=== PATIENT | female | born 1935 | race Caucasian/White ===

== ENCOUNTER 2017-12-29 20:03 | Emergency (ER) | payer MEDICARE ==
[2017-12-29 23:47] LABS: BASO # 0.1 K/uL (0.0-0.2); BASO % 0.7 % (0.0-2.0); EOS % 0.4 % (0.0-4.0); HEMOGLOBIN 11.9 g/dL (11.0-16.0); LYMPH # 1.4 K/uL (1.0-4.3); LYMPH % 16.8 % (20.0-40.0); MEAN CELL VOLUME 95.7 fL (81.0-99.0); MEAN CORPUSCULAR HEMOGLOBIN 32.7 pg (27.0-31.0); MEAN CORPUSCULAR HGB CONC 34.2 g/dL (33.0-37.0); MEAN PLATELET VOLUME 9.8 fL (7.2-11.7); MONO # 0.6 K/uL (0.0-0.8); MONO % 7.7 % (0.0-10.0); NEUT # 6.2 K/uL (1.8-7.0); NEUT % 74.4 % (50.0-75.0); NRBC % 0.1 % (0.0-2.0); RBC 3.64 Mil/uL (3.80-5.20); RED CELL DISTRIBUTION WIDTH 15.2 % (11.5-14.5); WHITE BLOOD COUNT 8.3 K/uL (4.8-10.8)
[2017-12-30 00:02] LABS: ALB/GLOB RATIO 1.2 (1.0-2.1); ALBUMIN 3.9 g/dL (3.5-5.0); ALT/SGPT 50 U/L (9-52); AST/SGOT 46 U/L (14-36); BLOOD UREA NITROGEN 20 mg/dL (7-17); CALCIUM 9.8 mg/dl (8.6-10.4); GFR AFRICAN-AMERICAN > 60; GFR NON-AFRICAN AMERICAN 53; LIPASE 184 U/L (23-300)
[2017-12-30] MEDS ORDERED: Sodium Chloride 0.9% 500 ML IV ONE (00:16)
[2017-12-30] MEDS ORDERED: Iohexol 240 (50 ml) PO STA (00:17)
[2017-12-30] MEDS ORDERED: Iohexol 240 (50 ml) ONE (00:25)
[2017-12-30] MEDS ORDERED: Sodium Chloride 0.9% 1,000 ML ONE (00:29)
--- NOTE | 2017-12-30 00:36 | C.PDOC ---
Time Seen by Provider: 12/29/17 22:30 Chief Complaint (Nursing): Abdominal Pain History Per: Patient, Family Onset/Duration Of Symptoms: Days, Intermittent Episodes Current Symptoms Are (Timing): Still Present Severity: Moderate Location Of Pain/Discomfort: Diffuse Quality Of Discomfort: Unable To Describe, "Pain" Exacerbating Factors: Food Additional History Per: Prior Records Past Medical History Reviewed: Historical Data, Nursing Documentation, Vital Signs Vital Signs: Last Vital Signs Temp 98 F 12/30/17 00:50 Pulse 98 H 12/30/17 00:50 Resp 20 12/30/17 00:50 BP 127/83 12/30/17 00:50 Pulse Ox 100 12/30/17 00:50 - Medical History PMH: Diabetes, HTN Surgical History: CABG Family History: States: Unknown Family Hx - Social History Hx Alcohol Use: No Hx Substance Use: No - Immunization History Hx Tetanus Toxoid Vaccination: No Hx Influenza Vaccination: Yes Hx Pneumococcal Vaccination: No Review Of Systems Except As Marked, All Systems Reviewed And Found Negative. Constitutional: Negative for: Fever Cardiovascular: Negative for: Chest Pain Respiratory: Negative for: Shortness of Breath Gastrointestinal: Positive for: Abdominal Pain Musculoskeletal: Negative for: Neck Pain Skin: Negative for: Rash Neurological: Negative for: Weakness, Numbness Physical Exam - Physical Exam Appears: Non-toxic, No Acute Distress Skin: Normal Color, Warm, Dry, No Rash Head: Atraumatic, Normacephalic Eye(s): bilateral: PERRL, EOMI Neck: Normal ROM, Supple Cardiovascular: Rhythm Regular Respiratory: Normal Breath Sounds, No Accessory Muscle Use Gastrointestinal/Abdominal: Soft, Tenderness (nonspecific), No Guarding, No Rebound Extremity: Normal ROM Neurological/Psych: Normal Motor, Normal Sensation ED Course And Treatment - Laboratory Results Result Diagrams: 12/29/17 23:42 12/29/17 23:42 ECG: Interpreted By Me, Viewed By Me ECG Rhythm: Sinus Rhythm, Nonspecific Changes ECG Interpretation: No Acute Changes Rate From EC O2 Sat by Pulse Oximetry: 95 Pulse Ox Interpretation: Normal Disposition - Disposition Disposition Time: 01:00 Condition: STABLE - Clinical Impression Clinical Impression: Abdominal pain Physician Patient Turnover Patient Signed Over To: Jesús Miller Handoff Comments: to f/up CT scan of abd/pelv.
[2017-12-30] MEDS ORDERED: Iohexol 350mg/ml 100 ML ONE (01:02)
--- NOTE | 2017-12-30 02:14 | CT ---
EXAM: CT Abdomen and Pelvis With Intravenous Contrast CLINICAL HISTORY: 82 years old, female; Pain; Abdominal pain; Prior surgery; Surgery type: Cabg, ; Additional info: Abd pain TECHNIQUE: Axial computed tomography images of the abdomen and pelvis with intravenous contrast. All CT scans at this facility use one or more dose reduction techniques, viz.: automated exposure control; ma/kV adjustment per patient size (including targeted exams where dose is matched to indication; i.e. head); or iterative reconstruction technique. Coronal and sagittal reformatted images were created and reviewed. CONTRAST: 100 mL of [id number] administered intravenously. COMPARISON: No relevant prior studies available. FINDINGS: Limitations: Motion artifact - mild to moderate. Lower thorax: Mild cardiomegaly. Coronary artery calcifications. Mild atelectasis/scarring. Mild interlobular septal thickening. Small bilateral pleural effusions. ABDOMEN: Liver: Unremarkable. No mass. Gallbladder and bile ducts: Gallbladder wall thickening and/or fluid. No calcified gallstones. No definite extrahepatic ductal dilation. Pancreas: No ductal dilation. No mass. Spleen: No splenomegaly. Adrenals: No mass. Kidneys and ureters: No mass. No hydronephrosis. Stomach and bowel: Few scattered diverticula within colon. No associated inflammatory stranding. Segmental areas of mild mural thickening vs underdistention of large bowel. No associated inflammatory stranding. No obstruction. Appendix: Normal caliber. No inflammation. PELVIS: Bladder: Unremarkable. Reproductive: Hysterectomy. ABDOMEN and PELVIS: Intraperitoneal space: Trace free fluid within abdomen. No free air. Bones/joints: Median sternotomy. Degenerative changes and scoliosis of spine. No acute fracture. Soft tissues: Minimal diffuse stranding within subcutaneous tissues. Vasculature: No aneurysm. Moderate atherosclerotic disease. Lymph nodes: No pathologically enlarged lymph nodes. IMPRESSION: 1. Gallbladder wall thickening and/or fluid. Clinical correlation is needed. 2. Mild colitis vs underdistention. Favor underdistention. Clinical correlation is needed. 3. Probable mild interstitial edema. Clinical correlation is needed. 4. Small pleural effusions. 5. Trace ascites. 6. Incidental/non-acute findings are described above.
[2017-12-30 03:07] LABS: SQUAMOUS EPITHIAL < 1 /hpf (0-5); URINE BACTERIA RARE (<OCC); URINE BILIRUBIN NEGATIVE (NEGATIVE); URINE CLARITY Hazy (Clear); URINE COLOR Yellow (YELLOW); URINE GLUCOSE (UA) NORMAL (Normal); URINE LEUKOCYTE ESTERASE 3+ Leu/uL (Negative); URINE NITRATE NEGATIVE (NEGATIVE); URINE PROTEIN NEGATIVE (NEGATIVE); URINE UROBILINOGEN NORMAL mg/dL (0.2-1.0)
[2017-12-30 03:10] LABS: URINE BLOOD 1+ (NEGATIVE)
[2017-12-30 03:26] VITALS: BP 120/79; PULSE 88; RESP 18; TEMP 97.4; O2SAT 100
--- NOTE | 2018-01-02 23:25 | CARD ---
APPROVED REPORT EKG Measurement Heart [id number] <Conclusion> Normal sinus rhythm Possible Left atrial enlargement Nonspecific T wave abnormality Abnormal ECG
== END 2017-12-30 03:40 | disposition home or self-care (01) ==
LOC: EDBD 20:03 → C.ER 20:03
DX: N39.0 Urinary tract infection, site not specified (principal); R10.9 Unspecified abdominal pain
CPT/HCPCS: 74177; 80053; 81001; 83690; 85025; 93005; 96361; 96374; 96375; 99285; J2405; J7040; Q9966; Q9967

== ENCOUNTER 2018-01-28 14:22 | Emergency (ER) | payer MEDICARE ==
[2018-01-28 14:38] VITALS: BMI 19.7
[2018-01-28 14:42] VITALS: TEMP 97.2; O2SAT 100
[2018-01-28 15:38] LABS: BASO # 0.1 K/uL (0.0-0.2); BASO % 0.9 % (0.0-2.0); EOS # 0.2 K/uL (0.0-0.7); EOS % 2.7 % (0.0-4.0); HEMOGLOBIN 11.3 g/dL (11.0-16.0); LYMPH # 1.3 K/uL (1.0-4.3); LYMPH % 24.1 % (20.0-40.0); MEAN CORPUSCULAR HEMOGLOBIN 32.1 pg (27.0-31.0); MEAN CORPUSCULAR HGB CONC 32.8 g/dL (33.0-37.0); MEAN PLATELET VOLUME 10.4 fL (7.2-11.7); MONO # 0.5 K/uL (0.0-0.8); MONO % 9.5 % (0.0-10.0); NEUT # 3.5 K/uL (1.8-7.0); NEUT % 62.8 % (50.0-75.0); NRBC % 0.1 % (0.0-2.0); RBC 3.53 Mil/uL (3.80-5.20); RED CELL DISTRIBUTION WIDTH 16.7 % (11.5-14.5); WHITE BLOOD COUNT 5.5 K/uL (4.8-10.8)
[2018-01-28 15:56] LABS: ALB/GLOB RATIO 1.2 (1.0-2.1); ALBUMIN 3.6 g/dL (3.5-5.0); ALT/SGPT 44 U/L (9-52); AST/SGOT 51 U/L (14-36); BLOOD UREA NITROGEN 17 mg/dL (7-17); CALCIUM 8.7 mg/dl (8.6-10.4); GFR AFRICAN-AMERICAN > 60; GFR NON-AFRICAN AMERICAN 60; LIPASE 184 U/L (23-300)
[2018-01-28 15:59] LABS: VENOUS BLOOD GAS PCO2 37 mmHg (40-60); VENOUS BLOOD GAS PO2 21 mm/Hg (30-55); VENOUS BLOOD PH 7.36 (7.32-7.43)
[2018-01-28 16:23] LABS: SQUAMOUS EPITHIAL 1 /hpf (0-5); URINE BACTERIA FEW (<OCC); URINE BILIRUBIN NEGATIVE (NEGATIVE); URINE BLOOD NEGATIVE (NEGATIVE); URINE CLARITY Hazy (Clear); URINE COLOR Yellow (YELLOW); URINE GLUCOSE (UA) NORMAL (Normal); URINE LEUKOCYTE ESTERASE 2+ Leu/uL (Negative); URINE PROTEIN 2+ mg/dL (NEGATIVE); URINE UROBILINOGEN NORMAL mg/dL (0.2-1.0)
--- NOTE | 2018-01-28 16:23 | C.PDOC ---
History Of Present Illness 82 y/o female presents to ED with complaints of colic left lower quadrant abdominal pain for 2 weeks. Patient reports pain is improved when she eats less and states she had similar episodes in 12/2017 where she had normal CT scan abdomen pelvis. Patient admits to constipation and denies nausea, vomiting, diarrhea, bowel incontinence, fever, chills or any other complaints at this time. Time Seen by Provider: 01/28/18 14:46 Chief Complaint (Nursing): Abdominal Pain History Per: Patient History/Exam Limitations: no limitations Onset/Duration Of Symptoms: Days Current Symptoms Are (Timing): Still Present Location Of Pain/Discomfort: LLQ Past Medical History Reviewed: Historical Data, Nursing Documentation, Vital Signs Vital Signs: Last Vital Signs Temp 97.2 F L 01/28/18 14:39 Pulse 74 01/28/18 17:02 Resp 20 01/28/18 17:02 BP 130/72 01/28/18 17:02 Pulse Ox 100 01/28/18 16:28 - Medical History PMH: Diabetes, HTN Surgical History: CABG Family History: States: No Known Family Hx - Social History Hx Alcohol Use: No Hx Substance Use: No - Immunization History Hx Tetanus Toxoid Vaccination: No Hx Influenza Vaccination: Yes Hx Pneumococcal Vaccination: No Review Of Systems Constitutional: Negative for: Fever, Chills Gastrointestinal: Positive for: Abdominal Pain, Constipation. Negative for: Nausea, Vomiting, Diarrhea Skin: Negative for: Rash Physical Exam - Physical Exam Appears: Non-toxic, No Acute Distress, Other (Elderly) Skin: Warm, Dry, No Rash Head: Atraumatic, Normacephalic Oral Mucosa: Moist Neck: Normal ROM, Supple Cardiovascular: Rhythm Regular Respiratory: Normal Breath Sounds, No Rales, No Rhonchi, No Wheezing Gastrointestinal/Abdominal: Soft, No Tenderness, No Guarding, No Rebound, Other (Dull to percussion) Back: No CVA Tenderness Extremity: Normal ROM, Capillary Refill (<2 seconds) Neurological/Psych: Oriented x3 ED Course And Treatment - Laboratory Results Result Diagrams: 01/28/18 15:29 01/28/18 15:29 O2 Sat by Pulse Oximetry: 100 (RA) Pulse Ox Interpretation: Normal Medical Decision Making Medical Decision Makin12/2017 CT scan reviewed: Small pleural effusion, Questionable mild gallbladder thickening Disposition Doctor Will See Patient In The: Office Counseled Patient/Family Regarding: Studies Performed, Diagnosis - Disposition Referrals: [facility] [Outside] Disposition: HOME/ ROUTINE Disposition Time: 16:30 Condition: GOOD Additional Instructions: trial a laxative now- drink a bottle of Mag Citrate- and re-evaluate your abdominal discomfort after using the bathroom 2-3 times daily stool softners as needed eat plenty of fruits and vegetables LESS rice, bread. Occasional laxatives as needed for colicky belly discomfort Follow-up in our outpatient [facility] (free) as needed. Instructions: Constipation, Adult (DC) Forms: [employer] (Togolese) - Clinical Impression Clinical Impression: Hx of abdominal colic - Scribe Statement The provider has reviewed the documentation as recorded by the Nancyibeduin Mueller All medical record entries made by the Nancyibeduin were at my direction and personally dictated by me. I have reviewed the chart and agree that the record accurately reflects my personal performance of the history, physical exam, medical decision making, and the department course for this patient. I have also personally directed, reviewed, and agree with the discharge instructions and disposition.
--- NOTE | 2018-01-28 16:26 | C.PDOC ---
Time Seen by Provider: 01/28/18 14:46 Chief Complaint (Nursing): Abdominal Pain Past Medical History Vital Signs: Last Vital Signs Temp 97.2 F L 01/28/18 14:39 Pulse 71 01/28/18 14:39 Resp 18 01/28/18 14:39 BP 126/78 01/28/18 14:39 Pulse Ox 100 01/28/18 14:39 - Medical History PMH: Diabetes, HTN Surgical History: CABG Family History: States: Unknown Family Hx - Social History Hx Alcohol Use: No Hx Substance Use: No - Immunization History Hx Tetanus Toxoid Vaccination: No Hx Influenza Vaccination: Yes Hx Pneumococcal Vaccination: No ED Course And Treatment - Laboratory Results Lab Interpretation: Normal ECG: Interpreted By Me ECG Rhythm: Sinus Rhythm ECG Interpretation: Normal Rate From EC O2 Sat by Pulse Oximetry: 100 Pulse Ox Interpretation: Normal - Radiology CXR: Interpreted by Me CXR Interpretation: Yes: No Acute Disease - Other Rad abd x 2 X-Ray: Interpreted by Me (+FOS) Reevaluation Time: 16:27 Reassessment Condition: Unchanged Medical Decision Making Medical Decision Making: +FOS, chronic constipation empiric laxative therapy Consider outpatient colonoscopy few WBC's in urine will NOT treat as frequent treatment of mild asymptomatic pyuria has more risk (C-diff) than benefit when asymptomatic. Disposition Doctor Will See Patient In The: Office Counseled Patient/Family Regarding: Studies Performed, Diagnosis - Disposition Disposition: HOME/ ROUTINE Disposition Time: 16:27 Condition: GOOD - Clinical Impression Clinical Impression: Hx of abdominal colic
[2018-01-28 17:03] VITALS: BP 130/72; PULSE 74; RESP 20
--- NOTE | 2018-01-29 08:28 | RAD ---
PROCEDURE: Radiographs of the chest and abdomen (obstructive series) HISTORY: abd pain COMPARISON: No prior. TECHNIQUE: AP radiograph of the chest, with upright and supine radiographs of the abdomen. FINDINGS: CHEST: Lungs: No consolidation Cardiovascular: Cardiomegaly, midline sternotomy. . No significant appearing pulmonary vascular congestion. Pleura: Small bilateral pleural effusions (Noted on prior report of CT 12/30/2017) No pneumothorax. Other findings: None. ABDOMEN AND PELVIS: Bowel: Stool retention.. No evidence of mechanical obstruction. Free air: None. Bones: Scoliosis, diffuse thoraco lumbar spondylosis. Other findings: Atherosclerotic vascular calcifications are present. . IMPRESSION: Similar small bilateral pleural effusions. No pulmonary consolidation. No evidence of mechanical bowel obstruction. Stool retention. Atherosclerotic vascular calcifications present.
--- NOTE | 2018-01-29 16:25 | CARD ---
APPROVED REPORT EKG Measurement Heart [id number] <Conclusion> Normal sinus rhythm Nonspecific T wave abnormality Abnormal ECG
== END 2018-01-28 17:02 | disposition home or self-care (01) ==
LOC: C.ER 14:22
DX: R10.84 Generalized abdominal pain (principal); I10 Essential (primary) hypertension; E11.9 Type 2 diabetes mellitus without complications

== ENCOUNTER 2018-04-11 08:46 | Emergency (ER) | payer MEDICARE ==
[2018-04-11 08:46] VITALS: BMI 19.7
[2018-04-11 09:13] VITALS: RESP 16
[2018-04-11] MEDS ORDERED: Iohexol 240 (50 ml) ONE (09:41)
[2018-04-11] MEDS ORDERED: Iohexol 240 (50 ml) PO ONE (10:01)
[2018-04-11 10:14] LABS: SQUAMOUS EPITHIAL 2 /hpf (0-5); URINE BACTERIA RARE (<OCC); URINE BILIRUBIN NEGATIVE (NEGATIVE); URINE BLOOD NEGATIVE (NEGATIVE); URINE CLARITY Hazy (Clear); URINE COLOR Amber (YELLOW); URINE GLUCOSE (UA) NORMAL (Normal); URINE LEUKOCYTE ESTERASE 3+ Leu/uL (Negative); URINE PROTEIN 1+ mg/dL (NEGATIVE); URINE UROBILINOGEN NORMAL mg/dL (0.2-1.0)
[2018-04-11 10:17] LABS: BASO % 0.8 % (0.0-2.0); EOS # 0.1 K/uL (0.0-0.7); EOS % 1.7 % (0.0-4.0); HEMOGLOBIN 12.7 g/dL (11.0-16.0); LYMPH % 17.5 % (20.0-40.0); MEAN CELL VOLUME 96.5 fL (81.0-99.0); MEAN CORPUSCULAR HEMOGLOBIN 33.1 pg (27.0-31.0); MEAN CORPUSCULAR HGB CONC 34.3 g/dL (33.0-37.0); MONO # 0.6 K/uL (0.0-0.8); NRBC % 0.1 % (0.0-2.0); RBC 3.84 Mil/uL (3.80-5.20); RED CELL DISTRIBUTION WIDTH 14.6 % (11.5-14.5); WHITE BLOOD COUNT 5.8 K/uL (4.8-10.8)
[2018-04-11 10:33] LABS: ALB/GLOB RATIO 1.2 (1.0-2.1); ALBUMIN 3.9 g/dL (3.5-5.0); ALT/SGPT 46 U/L (9-52); AST/SGOT 62 U/L (14-36); BLOOD UREA NITROGEN 29 mg/dL (7-17); CALCIUM 9.6 mg/dl (8.6-10.4); GFR AFRICAN-AMERICAN 47; GFR NON-AFRICAN AMERICAN 39; LIPASE 180 U/L (23-300)
--- NOTE | 2018-04-11 12:22 | RAD ---
PROCEDURE: CHEST RADIOGRAPH, 1 VIEW HISTORY: abd pain COMPARISON: None available. FINDINGS: LUNGS: No definite airspace disease bilaterally. PLEURA: No pneumothorax or pleural fluid seen. CARDIOVASCULAR: Prominent cardiac silhouette is appreciated with some element of magnification and in fact. No definite pulmonary vascular congestion. Right hilar prominence may be a function rotation. Consider follow-up chest CT further characterization as an underlying lesion is difficult to exclude here. OSSEOUS STRUCTURES: Sternotomy wires in position VISUALIZED UPPER ABDOMEN: Surgical clips are noted in the epigastric region medially. OTHER FINDINGS: None. IMPRESSION: Prior right hilar pattern may reflect a function of rotation rather than a mass but chest is advised to exclude the latter finding. No acute infiltrate bilaterally. Cardiomegaly likely.
--- NOTE | 2018-04-11 12:32 | C.PDOC ---
History Of Present Illness 82 y/o female presents to the ER complaining of abdominal pain, nausea, and vomiting which has been present for 1 week. Patient states that the abdominal pain is diffuse. Patient reports that she saw her PMD who referred her to GI. However,she has not followed up with GI as of yet. Denies having diarrhea, CP, SOB, sick contacts, and recent travel. Time Seen by Provider: 04/11/18 08:58 Chief Complaint (Nursing): Abdominal Pain History Per: Patient History/Exam Limitations: no limitations Onset/Duration Of Symptoms: Days Current Symptoms Are (Timing): Still Present Severity: Moderate Past Medical History Reviewed: Historical Data, Nursing Documentation, Vital Signs Vital Signs: Last Vital Signs Temp 98.2 F 04/11/18 14:37 Pulse 80 04/11/18 14:37 Resp 16 04/11/18 14:37 BP 128/79 04/11/18 14:37 Pulse Ox 99 04/11/18 14:37 - Medical History PMH: Diabetes, HTN, Hypercholesterolemia Surgical History: CABG (2011) Family History: States: No Known Family Hx - Social History Hx Alcohol Use: No Hx Substance Use: No - Immunization History Hx Tetanus Toxoid Vaccination: No Hx Influenza Vaccination: Yes Hx Pneumococcal Vaccination: No Review Of Systems Except As Marked, All Systems Reviewed And Found Negative. Constitutional: Negative for: Fever, Chills Cardiovascular: Negative for: Chest Pain Respiratory: Negative for: Shortness of Breath Gastrointestinal: Positive for: Nausea, Vomiting, Abdominal Pain. Negative for : Diarrhea Physical Exam - Physical Exam Appears: Non-toxic, No Acute Distress Skin: Normal Color, Warm, Dry Head: Atraumatic, Normacephalic Eye(s): bilateral: Normal Inspection Nose: Normal Oral Mucosa: Moist Neck: Supple Chest: Symmetrical Cardiovascular: Rhythm Regular Respiratory: Normal Breath Sounds, No Rales, No Rhonchi, No Wheezing Gastrointestinal/Abdominal: Bowel Sounds ((+) bowel sounds), Soft, Tenderness ( periumbilical tenderness), No Guarding, No Rebound Neurological/Psych: Oriented x3, Normal Speech ED Course And Treatment - Laboratory Results Result Diagrams: 04/11/18 09:56 04/11/18 09:56 ECG: Interpreted By Me, Viewed By Me ECG Rhythm: Sinus Rhythm Interpretation Of ECG: NSR with left axis deviation and non-specific ST/ T wave changes Rate From EC O2 Sat by Pulse Oximetry: 100 (RA) Pulse Ox Interpretation: Normal - Other Rad CXR X-Ray: Viewed By Me, Read By Radiologist Interpretation: PROCEDURE: CHEST RADIOGRAPH, 1 VIEW. HISTORY: abd pain. COMPARISON: None available. FINDINGS: LUNGS: No definite airspace disease bilaterally. PLEURA: No pneumothorax or pleural fluid seen. CARDIOVASCULAR: Prominent cardiac silhouette is appreciated with some element of magnification and in fact. No definite pulmonary vascular congestion. Right hilar prominence may be a function rotation. Consider follow-up chest CT further characterization as an underlying lesion is difficult to exclude here. OSSEOUS STRUCTURES: Sternotomy wires in position. VISUALIZED UPPER ABDOMEN: Surgical clips are noted in the epigastric region medially. OTHER FINDINGS: None. IMPRESSION: Prior right hilar pattern may reflect a function of rotation rather than a mass but chest is advised to exclude the latter finding. No acute infiltrate bilaterally. Cardiomegaly likely. - CT Scan/US CT -Abd & Pelv. Other Rad Studies (CT/US): Read By Radiologist, Radiology Report Reviewed CT/US Interpretation: PROCEDURE: CT Abdomen and Pelvis with contrast. HISTORY : abd pain. COMPARISON: Abdomen pelvis CT with contrast 12/30/2017. TECHNIQUE: Chest. Helical CT of the abdomen and pelvis was performed following oral contrast administration. Intravenous contrast was not administered due to renal insufficiency. Contrast dose: None. Radiation dose: Total exam DLP = 228.31 mGy-cm. This CT exam was performed using one or more of the following dose reduction techniques: Automated exposure control, adjustment of the mA and/or kV according to patient size, and/or use of iterative reconstruction technique. FINDINGS: LOWER THORAX: Recurrent versus slightly diminished bilateral pleural effusions remain mild in overall volume. Cardiomegaly reiterated. Linear atelectasis or fibrosis in the bilateral lung bases. LIVER: No gross lesion identified. GALLBLADDER AND BILE DUCTS: Mildly distended. Gallbladder wall not defined. PANCREAS: Unremarkable. No gross lesion or ductal dilatation. SPLEEN: Unremarkable. ADRENALS: Unremarkable. No mass. KIDNEYS AND URETERS: Unremarkable. No hydronephrosis. No solid mass. VASCULATURE: Unremarkable. No aortic aneurysm. BOWEL: Opacified small bowel loops appear unremarkable. Thickening is questioned involving the ascending through transverse large-bowel segments. Left hemicolon is limited evaluation due lack of oral contrast transit. Segmental colitis is therefore in question. Pancolitis is not favored but not completely excluded. APPENDIX: Normal appendix. PERITONEUM: Very mild as ascites appreciated predominately in the upper abdomen tiny liver the spleen and is of uncertain origin. No free intraperitoneal gas identified. LYMPH NODES: Unremarkable. No enlarged lymph nodes. BLADDER: Bladder wall appears thickened though the urinary bladder is not fully distended. Cystitis is not excluded. REPRODUCTIVE : Unremarkable. BONES: No acute fracture. OTHER FINDINGS: An anasarca type pattern of reaction in the intra abdominal as well as extra abdominal pelvic fat is identified. IMPRESSION: 1. Findings suspicious for at least segmental colitis of the colon is not potential pancolitis. Distal small bowel is not well evaluated due lack of oral contrast transit. No bowel obstruction appreciable. 2. Anasarca pattern developing. 3. Potential cystitis. 4. Mild bilateral pleural effusions, persistent or recurrent. Medical Decision Making Medical Decision Making: Assessment: Abdominal Pain Plan: --Labs --UA --CT- Abd & Pelv. --CXR --Omnipaque PO --Protonix IV patient resting comfortably, states improvement, will discharge home to follow up with gi doctor in 2 days. Information provided to patient. Disposition Counseled Patient/Family Regarding: Studies Performed, Diagnosis, Need For Followup, Rx Given - Disposition Referrals: Lee Puentes MD [Staff Provider] - Disposition: HOME/ ROUTINE Disposition Time: 13:48 Condition: STABLE Additional Instructions: follow up with gi doctor in 2 days call to make an appointment take medications as prescribed return to hospital if symptoms worsens or progress Prescriptions: Ciprofloxacin HCl [Cipro] 500 mg PO BID #20 tab Metronidazole [Flagyl] 500 mg PO BID #20 tablet Ondansetron ODT [Zofran ODT] 4 mg PO TID PRN #12 odt PRN Reason: Nausea/Vomiting traMADol [Ultram] 50 mg PO TID PRN #8 tab PRN Reason: Pain, Moderate (4-7) Instructions: Acute Abdomen (Belly Pain), Adult (DC) Forms: [facility] (Tuvaluan), General Discharge Instructions - Clinical Impression Clinical Impression: Colitis - Scribe Statement The provider has reviewed the documentation as recorded by the Kalyan Ball Provider Attestation: All medical record entries made by the Nancyibeduin were at my direction and personally dictated by me. I have reviewed the chart and agree that the record accurately reflects my personal performance of the history, physical exam, medical decision making, and the department course for this patient. I have also personally directed, reviewed, and agree with the discharge instructions and disposition.
--- NOTE | 2018-04-11 13:35 | CT ---
PROCEDURE: CT Abdomen and Pelvis with contrast HISTORY: abd pain COMPARISON: Abdomen pelvis CT with contrast 12/30/2017. TECHNIQUE: Chest Helical CT of the abdomen and pelvis was performed following oral contrast administration. Intravenous contrast was not administered due to renal insufficiency. Contrast dose: None Radiation dose: Total exam DLP = 228.31 mGy-cm. This CT exam was performed using one or more of the following dose reduction techniques: Automated exposure control, adjustment of the mA and/or kV according to patient size, and/or use of iterative reconstruction technique. FINDINGS: LOWER THORAX: Recurrent versus slightly diminished bilateral pleural effusions remain mild in overall volume. Cardiomegaly reiterated. Linear atelectasis or fibrosis in the bilateral lung bases. LIVER: No gross lesion identified. GALLBLADDER AND BILE DUCTS: Mildly distended. Gallbladder wall not defined. PANCREAS: Unremarkable. No gross lesion or ductal dilatation. SPLEEN: Unremarkable. ADRENALS: Unremarkable. No mass. KIDNEYS AND URETERS: Unremarkable. No hydronephrosis. No solid mass. VASCULATURE: Unremarkable. No aortic aneurysm. BOWEL: Opacified small bowel loops appear unremarkable. Thickening is questioned involving the ascending through transverse large-bowel segments. Left hemicolon is limited evaluation due lack of oral contrast transit. Segmental colitis is therefore in question. Pancolitis is not favored but not completely excluded. APPENDIX: Normal appendix. PERITONEUM: Very mild as ascites appreciated predominately in the upper abdomen tiny liver the spleen and is of uncertain origin. No free intraperitoneal gas identified LYMPH NODES: Unremarkable. No enlarged lymph nodes. BLADDER: Bladder wall appears thickened though the urinary bladder is not fully distended. Cystitis is not excluded. REPRODUCTIVE: Unremarkable. BONES: No acute fracture. OTHER FINDINGS: An anasarca type pattern of reaction in the intra abdominal as well as extra abdominal pelvic fat is identified. IMPRESSION: 1. Findings suspicious for at least segmental colitis of the colon is not potential pancolitis. Distal small bowel is not well evaluated due lack of oral contrast transit. No bowel obstruction appreciable. 2. Anasarca pattern developing. 3. Potential cystitis. 4. Mild bilateral pleural effusions, persistent or recurrent.
[2018-04-11 14:38] VITALS: BP 128/79; PULSE 80; TEMP 98.2
[2018-04-11 15:16] VITALS: O2SAT 100
== END 2018-04-11 14:36 | disposition home or self-care (01) ==
LOC: C.ER 08:46
DX: K52.9 Noninfective gastroenteritis and colitis, unspecified (principal); I10 Essential (primary) hypertension; E11.9 Type 2 diabetes mellitus without complications; E78.00 Pure hypercholesterolemia, unspecified
CPT/HCPCS: 71045; 74176; 80053; 81001; 83690; 84484; 85025; 96374; 96375; 99284; C9113; J2405; Q9966

== ENCOUNTER 2018-05-21 19:07 | Inpatient (IN) | payer MEDICARE, OTHER ==
[2018-05-21 19:08] VITALS: BMI 19.7
[2018-05-21] MEDS ORDERED: Sodium Chloride 0.9% 1,000 ML IV ONE (20:01)
--- NOTE | 2018-05-21 20:01 | C.PDOC ---
History Of Present Illness 82 y/o female presents to ED for complaints of abdominal pain associated with few episodes of vomiting and cough that began few hours ago. Patient states pain "comes and goes." Denies any other complaints. Time Seen by Provider: 05/21/18 20:01 Chief Complaint (Nursing): Abdominal Pain History Per: Patient History/Exam Limitations: no limitations Onset/Duration Of Symptoms: Hrs Current Symptoms Are (Timing): Still Present Severity: Moderate Pain Scale Rating Of: 4 Location Of Pain/Discomfort: Diffuse Radiation Of Pain To:: None Associated Symptoms: Vomiting. denies: Fever, Chills, Diarrhea Exacerbating Factors: None Alleviating Factors: None Last Bowel Movement: Today Recent travel outside of the [place]: No Additional History Per: Family Abnormal Vaginal Bleeding: No Past Medical History Reviewed: Historical Data, Nursing Documentation, Vital Signs Vital Signs: Last Vital Signs Temp 97.6 F 05/21/18 19:13 Pulse 77 05/21/18 22:33 Resp 14 05/21/18 22:33 BP 119/77 05/21/18 21:55 Pulse Ox 100 05/21/18 22:33 - Medical History PMH: Diabetes, HTN, Hypercholesterolemia Surgical History: CABG (2011) Family History: States: Unknown Family Hx - Social History Hx Alcohol Use: No Hx Substance Use: No - Immunization History Hx Tetanus Toxoid Vaccination: No Hx Influenza Vaccination: Yes Hx Pneumococcal Vaccination: No Review Of Systems Constitutional: Negative for: Fever, Chills Gastrointestinal: Positive for: Vomiting, Abdominal Pain. Negative for: Diarrhea Skin: Negative for: Rash Neurological: Negative for: Weakness, Numbness Psych: Negative for: Anxiety Physical Exam - Physical Exam Appears: Non-toxic, No Acute Distress Skin: Warm, Dry Head: Normacephalic Eye(s): bilateral: Normal Inspection Oral Mucosa: Moist Neck: Supple Chest: Symmetrical, Other (sternotomy chest scar) Cardiovascular: Rhythm Regular Respiratory: Rales (At bases ), No Rhonchi, No Wheezing Gastrointestinal/Abdominal: Soft, No Tenderness, Distention (Tympanic to percussion), No Guarding, No Rebound Back: Normal Inspection Extremity: Normal ROM, Pedal Edema (Bilateral) Extremity: Bilateral: Normal ROM Pulses: Left Dorsalis Pedis: Normal, Right Dorsalis Pedis: Normal Neurological/Psych: Oriented x3, Normal Speech (Speaking in full sentences ), Other (No focal deficits ) Gait: Steady ED Course And Treatment - Laboratory Results Result Diagrams: 05/21/18 20:10 05/21/18 20:10 ECG: Interpreted By Me, Viewed By Me ECG Rhythm: Sinus Rhythm (70), Nonspecific Changes O2 Sat by Pulse Oximetry: 98 (RA) Pulse Ox Interpretation: Normal - Radiology CXR: Interpreted by Me, Viewed By Me CXR Interpretation: Yes: Cardiomegaly, Other (chf, cabg). No: Infiltrates, Fracture Progress Note: Administered Protonix, Zofran, and IV fluids. Ordered blood work , EKG, and urinalysis. Disposition Discussed With Dr.: Fermín Delgado Comment: accepted the pt on his service and took over the care at 10:36 PM Doctor Will See Patient In The: Hospital Counseled Patient/Family Regarding: Studies Performed, Diagnosis - Disposition Disposition: HOSPITALIZED Disposition Time: 20:01 Condition: FAIR Forms: [facility] (Latvian) - POA Present On Arrival: Poor Glycemic Control - Clinical Impression Clinical Impression: Nausea, Abdominal pain, UTI (urinary tract infection), CHF (congestive heart failure) - Scribe Statement The provider has reviewed the documentation as recorded by the Scribe Sameer Rosenberg All medical record entries made by the Scribe were at my direction and personally dictated by me. I have reviewed the chart and agree that the record accurately reflects my personal performance of the history, physical exam, medical decision making, and the department course for this patient. I have also personally directed, reviewed, and agree with the discharge instructions and disposition. Decision To Admit - Pt Status Changed To: Hospital Disposition Of: Inpatient - Admit Certification Admit to Inpatient:: After my assessment, the patient will require hospitalization for at least two midnights. This is because of the severity of symptoms shown, intensity of services needed, and/or the medical risk in this patient being treated as an outpatient. - InPatient: Physician Admission Certification:: After my assessment, the patient will require hospitalization for at least two midnights. This is because of the severity of symptoms shown, intensity of services needed, and/or the medical risk in this patient being treated as an outpatient. - . Bed Request Type: Telemetry Admitting Physician: Fermín Delgado Patient Diagnosis: Nausea, Abdominal pain, UTI (urinary tract infection), CHF (congestive heart failure)
[2018-05-21 20:15] LABS: BASO % 0.3 % (0.0-2.0); EOS # 0.1 K/uL (0.0-0.7); EOS % 0.5 % (0.0-4.0); HEMOGLOBIN 14.9 g/dL (11.0-16.0); LYMPH # 1.2 K/uL (1.0-4.3); MEAN CELL VOLUME 96.9 fL (81.0-99.0); MEAN CORPUSCULAR HEMOGLOBIN 32.6 pg (27.0-31.0); MEAN CORPUSCULAR HGB CONC 33.7 g/dL (33.0-37.0); MEAN PLATELET VOLUME 10.3 fL (7.2-11.7); MONO # 1.2 K/uL (0.0-0.8); MONO % 11.1 % (0.0-10.0); NEUT # 8.3 K/uL (1.8-7.0); NEUT % 77.1 % (50.0-75.0); NRBC % 0.1 % (0.0-2.0); RBC 4.55 Mil/uL (3.80-5.20); RED CELL DISTRIBUTION WIDTH 16.8 % (11.5-14.5); WHITE BLOOD COUNT 10.8 K/uL (4.8-10.8)
[2018-05-21 20:26] LABS: INR 2.2; PROTHROMBIN TIME 24.2 SECONDS (9.7-12.2)
[2018-05-21 20:32] LABS: ALB/GLOB RATIO 1.3 (1.0-2.1); CALCIUM 9.4 mg/dl (8.6-10.4)
[2018-05-21 20:43] LABS: TROPONIN I 0.015 ng/mL (0.00-0.120)
[2018-05-21 21:52] LABS: SQUAMOUS EPITHIAL 4 /hpf (0-5); URINE BACTERIA RARE (<OCC); URINE BILIRUBIN NEGATIVE (NEGATIVE); URINE BLOOD NEGATIVE (NEGATIVE); URINE CLARITY Hazy (Clear); URINE COLOR Amber (YELLOW); URINE GLUCOSE (UA) NORMAL (Normal); URINE LEUKOCYTE ESTERASE 3+ Leu/uL (Negative); URINE PROTEIN NEGATIVE (NEGATIVE); URINE UROBILINOGEN NORMAL mg/dL (0.2-1.0)
[2018-05-21] MEDS ORDERED: Piperacillin/Tazobact 3.375 gm 100 ML IVPB STA (22:32)
[2018-05-21] MEDS ORDERED: Piperacillin/Tazobact 3.375 gm 100 ML IVPB ONE (22:39)
[2018-05-21] MEDS ORDERED: Iodixanol 320 MG/ML 100 ML BOTTLE IV ONE (22:41)
[2018-05-21] MEDS: Piperacillin/Tazobact 3.375 GM in Sodium Chloride 100 ML IVPB SCH (23:47)
[2018-05-22] MEDS ORDERED: Gadodiamide 287 mg/ml 20 ml IV ONE (03:40)
[2018-05-22] MEDS: Piperacillin/Tazobact 3.375 GM in Sodium Chloride 100 ML IVPB SCH ×3 (05:53→22:10)
--- NOTE | 2018-05-22 08:36 | RAD ---
PROCEDURE: CHEST RADIOGRAPH, 1 VIEW HISTORY: Shortness of breath COMPARISON: 04/11/2018. FINDINGS: LUNGS: The lungs are well inflated. There is moderate pulmonary venous congestion. PLEURA: No pneumothorax or pleural fluid seen. CARDIOVASCULAR: Persistent moderate cardiomegaly. Status post CABG. OSSEOUS STRUCTURES: No significant abnormalities. VISUALIZED UPPER ABDOMEN: Normal. OTHER FINDINGS: None. IMPRESSION: No interval change in moderate cardiomegaly and mild pulmonary venous congestion. No acute findings.
--- NOTE | 2018-05-22 09:03 | US ---
HISTORY: Abdominal pain COMPARISON: None. TECHNIQUE: Grayscale imaging was performed. FINDINGS: LIVER: Measures 12.4 cm. Normal echogenicity of the liver parenchyma. No mass. No intrahepatic bile duct dilatation. GALLBLADDER: There are no gallstones, wall thickening or pericholecystic fluid. The sonographic Moreno's sign is negative. COMMON BILE DUCT: Measures 8.0 mm. No stones. No dilatation. PANCREAS: Unremarkable as visualized. No mass. No ductal dilatation. RIGHT KIDNEY: Measures 8.5 cm. Normal echogenicity. No calculus, mass, or hydronephrosis. LEFT KIDNEY: Measures 9.0cm. Normal echogenicity. No calculus, mass, or hydronephrosis. SPLEEN: Normal in size and contour. No mass. AORTA: No aneurysmal dilatation. IVC: Unremarkable. OTHER FINDINGS: None. IMPRESSION: Moderate diffuse dilatation of the common bile duct without sonographic evidence for choledocholithiasis. Correlation with MRI/MRCP is recommended.
--- NOTE | 2018-05-22 10:41 | CT ---
PROCEDURE: CT abdomen pelvis dated 05/21/2018. HISTORY: Abdominal pain, elevated bilirubin. COMPARISON: Comparison made with prior scan 04/11/2018. . TECHNIQUE: Contiguous axial images of the abdomen and pelvis following intravenous injection of approximately 100 cc Visipaque 320 contrast material. . . Coronal and Sagittal reformats generated. Radiation dose: Total exam DLP = 205.03 mGy-cm. This CT exam was performed using one or more of the following dose reduction techniques: Automated exposure control, adjustment of the mA and/or kV according to patient size, and/or use of iterative reconstruction technique. FINDINGS: LOWER THORAX: Heart is enlarged. . No significant pericardial effusion. There is a small left-sided effusion and mild left basilar atelectasis and/or scarring. . There are also of localized consolidation changes in the right lung base associate pleural thickening as well. Suspect trace right effusion LIVER: Liver exhibits normal size measuring approximately 14.6 cm in CC dimension. No obvious hepatic masses or collections. Portal vein and splenic veins are opacified. Minimal central intrahepatic biliary ductal dilatation. GALLBLADDER AND BILE DUCTS: Gallbladder partially distended. Questionable of a layering gravel and/or sludge within the gallbladder lumen. Clinic correlation with ultrasound followup could be performed. . Common bile duct is dilated PANCREAS: Pancreas appears atrophic and fatty replaced. No obvious pancreatic mass or collection. SPLEEN: The spleen exhibits normal size and attenuation pattern. ADRENALS: There are no adrenal lesions. KIDNEYS AND URETERS: Kidneys demonstrate evidence relatively symmetric nephrograms. No evidence of nephrolithiasis or hydronephrosis. Unremarkable. No stone or hydronephrosis. BLADDER: Urinary bladder is incompletely distended which presumably accounts slight thick-walled appearance however correlation with urinalysis recommended to exclude cystitis. REPRODUCTIVE: Uterus is not visualized and presumably has been resected. Clinic correlation surgical history. APPENDIX: Unremarkable. BOWEL: Evaluation of the bowel is limited due to the lack of oral contrast material. Stomach is incompletely distended. Visualized of small bowel exhibit normal contour and caliber. No evidence of acute mechanical small bowel obstruction. Stool and air seen throughout the large bowel. No definitive mural wall thickening. PERITONEUM: Unremarkable. No fluid collection. No free air. LYMPH NODES: Unremarkable. No enlarged lymph nodes. VASCULATURE: Unremarkable. No aortic aneurysm. Partially calcified atherosclerotic plaque seen along the abdominal aorta and proximal iliac arteries appear BONES: Mild multilevel degenerative spondylosis of the thoracic minor localized scoliosis OTHER FINDINGS: None. IMPRESSION: Questionable layering sludge and/or gravel. Follow-up gallbladder ultrasound recommended. Dilatation of the common bile duct. Urinary bladder incompletely distended which presumably in part accounts for thick-walled appearance. Possibility of a cystitis not excluded. Correlation with urinalysis. Localized consolidation right lung base. Small left-sided effusion with atelectasis and or scarring changes both lung bases. . Trace right effusion Cardiomegaly.
[2018-05-22] MEDS: Enoxaparin 40 mg Syringe SC SCH (11:17)
--- NOTE | 2018-05-22 13:33 | CP.PCM.CON ---
<HuanmableEthan - Last Filed: 05/22/18 13:27> History of Present Illness - History of Present Illness History of Present Illness: GI Fellow PGY4, Consult note. Mrs. He is a very pleasant 82yo Mong[place]ian female with history of CABG, HTN, DM who presents with acute on chronic abdominal pain. The pain originally presented 6months ago and has been intermittent. The abdominal pain is now more frequent and highly associated with food. The pain is moderate and diffuse. She admits nausea without much emesis and weight loss. She denies fever, chills, tremors. She has been evaluated by primary care and GI services. She was scheduled for EGD and colon this week but unable to make appt due to present symptoms. She has been told she may need her GB removed at some point by her PCP per the . Additionally for the last two days she has been complaining of productive cough with talamantes to clear phlegm and eye redness. No clear sick contacts. 12pt ROS completed and negative except for as above. Past Patient History - Infectious Disease Hx of Infectious Diseases: None - Past Medical History & Family History Past Medical History?: Yes - Past Social History Smoking Status: Never Smoked - CARDIAC Hx Cardiac Disorders: Yes Hx Hypercholesterolemia: Yes Hx Hypertension: Yes - PULMONARY Hx Respiratory Disorders: No - NEUROLOGICAL Hx Neurological Disorder: No - HEENT Hx HEENT Problems: Yes Other/Comment: family states pt has 'sick look in eyes' - RENAL Hx Chronic Kidney Disease: No - ENDOCRINE/METABOLIC Hx Endocrine Disorders: Yes Hx Diabetes Mellitus Type 2: Yes - HEMATOLOGICAL/ONCOLOGICAL Hx Blood Disorders: No - INTEGUMENTARY Hx Dermatological Problems: No - MUSCULOSKELETAL/RHEUMATOLOGICAL Hx Musculoskeletal Disorders: No Hx Falls: No - GASTROINTESTINAL Hx Gastrointestinal Disorders: No - GENITOURINARY/GYNECOLOGICAL Hx Genitourinary Disorders: No - PSYCHIATRIC Hx Psychophysiologic Disorder: No Hx Substance Use: No - SURGICAL HISTORY Hx Surgeries: Yes Hx Coronary Artery Bypass Graft: Yes (2011) - ANESTHESIA Hx Anesthesia: Yes Hx Anesthesia Reactions: No Hx Malignant Hyperthermia: No Has any member of the family had a problem w/ anesthesia?: No Meds Allergies/Adverse Reactions: Allergies Allergy/AdvReac Type Severity Reaction Status Date / Time No Known Allergies Allergy Verified 05/21/18 19:30 - Medications Medications: Current Medications Aspirin (Ecotrin) 81 mg PO DAILY [facility] Last Admin: 05/22/18 11:16 Dose: 81 mg Carvedilol (Coreg) 6.25 mg PO BID [facility] Last Admin: 05/22/18 11:16 Dose: 6.25 mg Clopidogrel Bisulfate (Plavix) 75 mg PO DAILY [facility] Last Admin: 05/22/18 11:16 Dose: 75 mg Enoxaparin Sodium (Lovenox) 40 mg SC DAILY [facility] Last Admin: 05/22/18 11:17 Dose: 40 mg Famotidine (Pepcid) 20 mg PO BID [facility] Last Admin: 05/22/18 11:16 Dose: 20 mg Piperacillin Sod/Tazobactam (Sod 3.375 gm/ Sodium Chloride) 100 mls @ 200 mls/ hr IVPB Q8H [facility] PRN Reason: Protocol Last Admin: 05/22/18 05:53 Dose: 200 mls/hr Losartan Potassium (Cozaar) 100 mg PO DAILY [facility] Last Admin: 05/22/18 11:16 Dose: 100 mg Metformin HCl (Glucophage) 500 mg PO DAILY [facility] Last Admin: 05/22/18 11:16 Dose: 500 mg Pneumococcal Polyvalent Vaccine (Pneumovax 23 Vaccine) 0.5 ml IM .ONCE ONE Stop: 05/24/18 14:01 Pregabalin (Lyrica) 75 mg PO DAILY [facility] Last Admin: 05/22/18 11:16 Dose: 75 mg Torsemide (Demadex) 20 mg PO DAILY [facility] Last Admin: 05/22/18 11:15 Dose: 20 mg Physical Exam - Constitutional Appears: Non-toxic, No Acute Distress, Chronically Ill - Head Exam Head Exam: ATRAUMATIC, NORMAL INSPECTION, NORMOCEPHALIC - Eye Exam Eye Exam: Conjunctival injection, EOMI. absent: Scleral icterus - ENT Exam ENT Exam: Mucous Membranes Moist, Normal Exam - Respiratory Exam Respiratory Exam: Clear to Auscultation Bilateral, NORMAL BREATHING PATTERN. absent: Rales, Wheezes - Cardiovascular Exam Cardiovascular Exam: REGULAR RHYTHM, +S1, +S2 - GI/Abdominal Exam GI & Abdominal Exam: Hyperactive Bowel Sounds, Soft. absent: Distended, Mass, Organomegaly, Tenderness - Extremities Exam Extremities exam: Positive for: normal inspection. Negative for: pedal edema - Neurological Exam Neurological exam: Alert, Oriented x3 - Psychiatric Exam Psychiatric exam: Normal Affect, Normal Mood - Skin Skin Exam: Dry, Intact, Normal Color Results - Vital Signs Recent Vital Signs: Last Vital Signs Temp 99 F 05/22/18 07:00 Pulse 70 05/22/18 07:40 Resp 20 05/22/18 07:00 BP 116/74 05/22/18 07:00 Pulse Ox 99 05/22/18 07:00 - Labs Result Diagrams: 05/21/18 20:10 05/21/18 20:10 Labs: Laboratory Results - last 24 hr 05/21/18 05/21/18 05/21/18 20:10 20:10 20:10 WBC 10.8 D RBC 4.55 Hgb 14.9 D Hct 44.1 MCV 96.9 MCH 32.6 H MCHC 33.7 RDW 16.8 H Plt Count 165 MPV 10.3 Neut % (Auto) 77.1 H Lymph % (Auto) 11.0 L [place] % (Auto) 11.1 H Eos % (Auto) 0.5 Baso % (Auto) 0.3 Neut # (Auto) 8.3 H Lymph # (Auto) 1.2 [place] # (Auto) 1.2 H Eos # (Auto) 0.1 Baso # (Auto) 0.0 PT 24.2 H INR 2.2 APTT 31 Sodium 133 Potassium 4.6 Chloride 99 Carbon Dioxide 23 Anion Gap 16 BUN 25 H Creatinine 1.1 Est GFR ( Amer) 58 Est GFR (Non-Af Amer) 48 POC Glucose (mg/dL) Random Glucose 137 H Calcium 9.4 Total Bilirubin 2.2 H AST 56 H ALT 46 Alkaline Phosphatase 98 Troponin I 0.0150 NT-Pro-B Natriuret Pep 11202 H Total Protein 7.0 Albumin 4.0 Globulin 3.0 Albumin/Globulin Ratio 1.3 Lipase 188 Urine Color Urine Clarity Urine pH Ur Specific [place] Urine Protein Urine Glucose (UA) Urine Ketones Urine Blood Urine Nitrate Urine Bilirubin Urine Urobilinogen Ur Leukocyte Esterase Urine WBC (Auto) Urine RBC (Auto) Ur Squamous Epith Cells Urine Bacteria 05/21/18 05/22/18 05/22/18 21:36 06:35 11:14 WBC RBC Hgb Hct MCV MCH MCHC RDW Plt Count MPV Neut % (Auto) Lymph % (Auto) [place] % (Auto) Eos % (Auto) Baso % (Auto) Neut # (Auto) Lymph # (Auto) [place] # (Auto) Eos # (Auto) Baso # (Auto) PT INR APTT Sodium Potassium Chloride Carbon Dioxide Anion Gap BUN Creatinine Est GFR ( Amer) Est GFR (Non-Af Amer) POC Glucose (mg/dL) 151 H 133 H Random Glucose Calcium Total Bilirubin AST ALT Alkaline Phosphatase Troponin I NT-Pro-B Natriuret Pep Total Protein Albumin Globulin Albumin/Globulin Ratio Lipase Urine Color Marilia Urine Clarity Hazy Urine pH 5.0 Ur Specific [place] 1.017 Urine Protein Negative Urine Glucose (UA) Normal Urine Ketones Trace Urine Blood Negative Urine Nitrate Negative Urine Bilirubin Negative Urine Urobilinogen Normal Ur Leukocyte Esterase 3+ H Urine WBC (Auto) 43 H Urine RBC (Auto) 2 Ur Squamous Epith Cells 4 Urine Bacteria Rare Assessment & Plan - Assessment and Plan (Free Text) Assessment: 82F with hx of CABG, HTN, DM presenting with non-focal worsening abominal pain associated with food and weight loss. #Abdominal pain #Weight loss #Elevated T. bilirubin #Coagulopathy #Likely systemic viral infection #CAD s/p CABG #Likely chronic systolic CHF #DM #HTN Plan: -Continue supportive care -DDX is broad including CBD stone, PUD, malignancy, congestive liver disease, chronic mesenteric ischemia. Less likely acute cholecystitis or cholangitis. -CBD at the upper limit of normal. r/o CBD obstruction i.e stone, mass with MRCP -Monitor CMP and INR -Flu test -Differentiate bilirubin -Continue abx today and reassess tomorrow. -Continue other medical care per primary team -Consider EGD after results of MRCP. She will likely benefit from cardiac evaluation if procedure planned. - <Lee Puentes Y - Last Filed: 05/22/18 13:52> Meds - Medications Medications: Current Medications Aspirin (Ecotrin) 81 mg PO DAILY [facility] Last Admin: 05/22/18 11:16 Dose: 81 mg Carvedilol (Coreg) 6.25 mg PO BID [facility] Last Admin: 05/22/18 11:16 Dose: 6.25 mg Clopidogrel Bisulfate (Plavix) 75 mg PO DAILY [facility] Last Admin: 05/22/18 11:16 Dose: 75 mg Enoxaparin Sodium (Lovenox) 40 mg SC DAILY [facility] Last Admin: 05/22/18 11:17 Dose: 40 mg Famotidine (Pepcid) 20 mg PO BID [facility] Last Admin: 05/22/18 11:16 Dose: 20 mg Piperacillin Sod/Tazobactam (Sod 3.375 gm/ Sodium Chloride) 100 mls @ 200 mls/ hr IVPB Q8H [facility] PRN Reason: Protocol Last Admin: 05/22/18 05:53 Dose: 200 mls/hr Losartan Potassium (Cozaar) 100 mg PO DAILY [facility] Last Admin: 05/22/18 11:16 Dose: 100 mg Metformin HCl (Glucophage) 500 mg PO DAILY [facility] Last Admin: 05/22/18 11:16 Dose: 500 mg Pneumococcal Polyvalent Vaccine (Pneumovax 23 Vaccine) 0.5 ml IM .ONCE ONE Stop: 05/24/18 14:01 Pregabalin (Lyrica) 75 mg PO DAILY [facility] Last Admin: 05/22/18 11:16 Dose: 75 mg Torsemide (Demadex) 20 mg PO DAILY [facility] Last Admin: 05/22/18 11:15 Dose: 20 mg Results - Vital Signs Recent Vital Signs: Last Vital Signs Temp 99 F 05/22/18 07:00 Pulse 70 05/22/18 07:40 Resp 20 05/22/18 07:00 BP 116/74 05/22/18 07:00 Pulse Ox 99 05/22/18 07:00 - Labs Result Diagrams: 05/21/18 20:10 05/21/18 20:10 Labs: Laboratory Results - last 24 hr 05/21/18 05/21/18 05/21/18 20:10 20:10 20:10 WBC 10.8 D RBC 4.55 Hgb 14.9 D Hct 44.1 MCV 96.9 MCH 32.6 H MCHC 33.7 RDW 16.8 H Plt Count 165 MPV 10.3 Neut % (Auto) 77.1 H Lymph % (Auto) 11.0 L [place] % (Auto) 11.1 H Eos % (Auto) 0.5 Baso % (Auto) 0.3 Neut # (Auto) 8.3 H Lymph # (Auto) 1.2 [place] # (Auto) 1.2 H Eos # (Auto) 0.1 Baso # (Auto) 0.0 PT 24.2 H INR 2.2 APTT 31 Sodium 133 Potassium 4.6 Chloride 99 Carbon Dioxide 23 Anion Gap 16 BUN 25 H Creatinine 1.1 Est GFR ( Amer) 58 Est GFR (Non-Af Amer) 48 POC Glucose (mg/dL) Random Glucose 137 H Calcium 9.4 Total Bilirubin 2.2 H AST 56 H ALT 46 Alkaline Phosphatase 98 Troponin I 0.0150 NT-Pro-B Natriuret Pep 57835 H Total Protein 7.0 Albumin 4.0 Globulin 3.0 Albumin/Globulin Ratio 1.3 Lipase 188 Urine Color Urine Clarity Urine pH Ur Specific [place] Urine Protein Urine Glucose (UA) Urine Ketones Urine Blood Urine Nitrate Urine Bilirubin Urine Urobilinogen Ur Leukocyte Esterase Urine WBC (Auto) Urine RBC (Auto) Ur Squamous Epith Cells Urine Bacteria 05/21/18 05/22/18 05/22/18 21:36 06:35 11:14 WBC RBC Hgb Hct MCV MCH MCHC RDW Plt Count MPV Neut % (Auto) Lymph % (Auto) [place] % (Auto) Eos % (Auto) Baso % (Auto) Neut # (Auto) Lymph # (Auto) [place] # (Auto) Eos # (Auto) Baso # (Auto) PT INR APTT Sodium Potassium Chloride Carbon Dioxide Anion Gap BUN Creatinine Est GFR ( Amer) Est GFR (Non-Af Amer) POC Glucose (mg/dL) 151 H 133 H Random Glucose Calcium Total Bilirubin AST ALT Alkaline Phosphatase Troponin I NT-Pro-B Natriuret Pep Total Protein Albumin Globulin Albumin/Globulin Ratio Lipase Urine Color Marilia Urine Clarity Hazy Urine pH 5.0 Ur Specific [place] 1.017 Urine Protein Negative Urine Glucose (UA) Normal Urine Ketones Trace Urine Blood Negative Urine Nitrate Negative Urine Bilirubin Negative Urine Urobilinogen Normal Ur Leukocyte Esterase 3+ H Urine WBC (Auto) 43 H Urine RBC (Auto) 2 Ur Squamous Epith Cells 4 Urine Bacteria Rare Attending/Attestation - Attestation I have personally seen and examined this patient.: Yes I have fully participated in the care of the patient.: Yes I have reviewed all pertinent clinical information: Yes Notes (Text): 05/22/18 13:46 I have seen and examined patient with GI fellow. Agree with above documentation with the following additions. In brief, this is an 82 year old female with history of CAD/CABG on plavix, CHF, HTN who is admitted to hospital with complaint of progressive abdominal pain. The pain initially began 6 months ago and described as diffuse, 7/10 intensity pain worsened following meal consumption. Over the past 1 month the pain has gotten more severe and she has become fearful of eating resulting in weight loss (she is not able to quantify amount). For the past two days she also notes productive cough along with conjunctivitis but denies nausea, vomiting, fever/chills, or change in bowel habits. She was scheduled for EGD/colonoscopy yesterday however cancelled procedure due to progressive symptoms. No prior endoscopic evaluation. Social history: non-smoker, no ETOH use Family history: reviewed, patient denies history of GI malignancy CAD/CABG on plavix CHF HTN Transaminitis, abdominal pain Abdominal US and CT reviewed by me showing +cholelithiasis/sludge, dilated CBD to 8 mm - NPO - Continue with antibiotic therapy, obtain blood cultures - Fractionate bilirubin and continue to monitor LFTs - Obtain MRCP to rule out choledocholithiasis - Would consider surgical consultation given possible cholecystitis - Further management pending radiology imaging and clinical progress, will continue to monitor patient course.
--- NOTE | 2018-05-22 23:09 | CP.PCM.HP ---
Past Patient History - Infectious Disease Hx of Infectious Diseases: None - Past Medical History & Family History Past Medical History?: Yes - Past Social History Smoking Status: Never Smoked - CARDIAC Hx Cardiac Disorders: Yes Hx Hypercholesterolemia: Yes Hx Hypertension: Yes - PULMONARY Hx Respiratory Disorders: No - NEUROLOGICAL Hx Neurological Disorder: No - HEENT Hx HEENT Problems: Yes Other/Comment: family states pt has 'sick look in eyes' - RENAL Hx Chronic Kidney Disease: No - ENDOCRINE/METABOLIC Hx Endocrine Disorders: Yes Hx Diabetes Mellitus Type 2: Yes - HEMATOLOGICAL/ONCOLOGICAL Hx Blood Disorders: No - INTEGUMENTARY Hx Dermatological Problems: No - MUSCULOSKELETAL/RHEUMATOLOGICAL Hx Musculoskeletal Disorders: No Hx Falls: No - GASTROINTESTINAL Hx Gastrointestinal Disorders: No - GENITOURINARY/GYNECOLOGICAL Hx Genitourinary Disorders: No - PSYCHIATRIC Hx Psychophysiologic Disorder: No Hx Substance Use: No - SURGICAL HISTORY Hx Surgeries: Yes Hx Coronary Artery Bypass Graft: Yes (2011) - ANESTHESIA Hx Anesthesia: Yes Hx Anesthesia Reactions: No Hx Malignant Hyperthermia: No Has any member of the family had a problem w/ anesthesia?: No Meds Allergies/Adverse Reactions: Allergies Allergy/AdvReac Type Severity Reaction Status Date / Time No Known Allergies Allergy Verified 05/21/18 19:30 Results - Vital Signs Recent Vital Signs: Last Vital Signs Temp 97.4 F L 05/22/18 15:00 Pulse 64 05/22/18 20:00 Resp 18 05/22/18 15:00 BP 111/65 05/22/18 15:00 Pulse Ox 99 05/22/18 15:00 - Labs Result Diagrams: 05/21/18 20:10 05/21/18 20:10 Labs: Laboratory Results - last 24 hr 05/22/18 05/22/18 05/22/18 06:35 11:14 13:38 POC Glucose (mg/dL) 151 H 133 H Direct Bilirubin 0.8 H Influenza Typ A,B (EIA) 05/22/18 05/22/18 05/22/18 16:28 18:02 21:03 POC Glucose (mg/dL) 91 139 H Direct Bilirubin Influenza Typ A,B (EIA) Negative for flu a/b
[2018-05-23] MEDS: Piperacillin/Tazobact 3.375 GM in Sodium Chloride 100 ML IVPB SCH ×2 (06:15→13:46)
[2018-05-23 09:02] LABS: INR 1.6
[2018-05-23 09:08] LABS: PROTHROMBIN TIME 17.5 SECONDS (9.7-12.2)
[2018-05-23 10:05] LABS: ALB/GLOB RATIO 1.2 (1.0-2.1); BILIRUBIN,DIRECT 0.9 mg/dL (0.0-0.4); CALCIUM 8.4 mg/dl (8.6-10.4)
[2018-05-23] MEDS: Enoxaparin 40 mg Syringe SC SCH (10:50)
[2018-05-23] MEDS: Potassium Chloride 20 mEq/15 ml LIQ UD PO SCH ×2 (16:21→20:27)
--- NOTE | 2018-05-23 17:37 | CP.PCM.PN ---
<Severino He - Last Filed: 05/23/18 17:39> Subjective - Date & Time of Evaluation Date of Evaluation: 05/23/18 Time of Evaluation: 12:00 - Subjective Subjective: PGY5 GI Follow-up Pt seen and examined bedside Denies any abd pain Denies any fever, chills or diaphoresis tolerating clears ROS: 12 point ROS conducted, neg other than above Objective - Vital Signs/Intake and Output Vital Signs (last 24 hours): Temp Pulse Resp BP Pulse Ox 97.3 F L 66 20 104/65 98 05/23/18 15:53 05/23/18 15:53 05/23/18 15:53 05/23/18 15:53 05/23/18 15:53 Intake and Output: 05/23/18 05/23/18 06:59 18:59 Intake Total 400 Balance 400 - Medications Medications: Current Medications Aspirin (Ecotrin) 81 mg PO DAILY [facility] Last Admin: 05/23/18 10:50 Dose: 81 mg Carvedilol (Coreg) 6.25 mg PO BID [facility] Last Admin: 05/23/18 10:50 Dose: 6.25 mg Clopidogrel Bisulfate (Plavix) 75 mg PO DAILY [facility] Last Admin: 05/23/18 10:50 Dose: 75 mg Enoxaparin Sodium (Lovenox) 40 mg SC DAILY [facility] Last Admin: 05/23/18 10:50 Dose: 40 mg Famotidine (Pepcid) 20 mg PO BID [facility] Last Admin: 05/23/18 10:49 Dose: 20 mg Piperacillin Sod/Tazobactam (Sod 3.375 gm/ Sodium Chloride) 100 mls @ 200 mls/ hr IVPB Q8H [facility] PRN Reason: Protocol Last Admin: 05/23/18 13:46 Dose: 200 mls/hr Losartan Potassium (Cozaar) 100 mg PO DAILY [facility] Last Admin: 05/23/18 10:49 Dose: 100 mg Metformin HCl (Glucophage) 500 mg PO DAILY [facility] Last Admin: 05/23/18 10:50 Dose: 500 mg Pneumococcal Polyvalent Vaccine (Pneumovax 23 Vaccine) 0.5 ml IM .ONCE ONE Stop: 05/24/18 14:01 Potassium Chloride (Potassium Chloride Oral Soln) 40 meq PO Q4 [facility] Stop: 05/24/18 00:01 Pregabalin (Lyrica) 75 mg PO DAILY [facility] Last Admin: 05/23/18 10:49 Dose: 75 mg Torsemide (Demadex) 20 mg PO DAILY [facility] Last Admin: 05/23/18 10:49 Dose: 20 mg - Labs Labs: 05/21/18 20:10 05/23/18 08:51 PT 17.5 SECONDS (9.7-12.2) H D 05/23/18 08:51 INR 1.6 D 05/23/18 08:51 APTT 31 SECONDS (21-34) 05/21/18 20:10 - Constitutional Appears: Well, No Acute Distress - Head Exam Head Exam: ATRAUMATIC, NORMOCEPHALIC - Eye Exam Eye Exam: Normal appearance - ENT Exam ENT Exam: Mucous Membranes Moist, Normal Exam - Neck Exam Neck Exam: Normal Inspection - Cardiovascular Exam Cardiovascular Exam: REGULAR RHYTHM, +S1, +S2 - GI/Abdominal Exam GI & Abdominal Exam: Soft, Normal Bowel Sounds. absent: Guarding, Rigid, Tenderness, Organomegaly - Extremities Exam Extremities Exam: absent: Joint Swelling, Pedal Edema - Neurological Exam Neurological Exam: Alert, Awake, Oriented x3 - Psychiatric Exam Psychiatric exam: Normal Affect, Normal Mood - Skin Skin Exam: Dry, Intact, Normal Color, Warm Assessment and Plan - Assessment and Plan (Free Text) Assessment: 82F with hx of CABG, HTN, DM presenting with non-focal worsening abominal pain associated with food and weight loss. #Abdominal pain #Weight loss #Elevated T. bilirubin #Coagulopathy #Likely systemic viral infection #CAD s/p CABG #Likely chronic systolic CHF #DM #HTN Plan: -Continue supportive care -DDX is broad including CBD stone, PUD, malignancy, congestive liver disease, chronic mesenteric ischemia. Less likely acute cholecystitis or cholangitis. -CBD at the upper limit of normal. r/o CBD obstruction i.e stone, mass with MRCP -Monitor CMP and INR -Continue abx -Continue other medical care per primary team -Consider EGD after results of MRCP. She will likely benefit from cardiac evaluation if procedure planned. D/W <Marisa Nieves - Last Filed: 05/23/18 18:07> Objective - Vital Signs/Intake and Output Vital Signs (last 24 hours): Temp Pulse Resp BP Pulse Ox 97.3 F L 66 20 104/65 98 05/23/18 15:53 05/23/18 15:53 05/23/18 15:53 05/23/18 15:53 05/23/18 15:53 Intake and Output: 05/23/18 05/23/18 06:59 18:59 Intake Total 400 Balance 400 - Medications Medications: Current Medications Aspirin (Ecotrin) 81 mg PO DAILY [facility] Last Admin: 05/23/18 10:50 Dose: 81 mg Carvedilol (Coreg) 6.25 mg PO BID [facility] Last Admin: 05/23/18 10:50 Dose: 6.25 mg Clopidogrel Bisulfate (Plavix) 75 mg PO DAILY [facility] Last Admin: 05/23/18 10:50 Dose: 75 mg Enoxaparin Sodium (Lovenox) 40 mg SC DAILY [facility] Last Admin: 05/23/18 10:50 Dose: 40 mg Famotidine (Pepcid) 20 mg PO BID [facility] Last Admin: 05/23/18 10:49 Dose: 20 mg Piperacillin Sod/Tazobactam (Sod 3.375 gm/ Sodium Chloride) 100 mls @ 200 mls/ hr IVPB Q8H [facility] PRN Reason: Protocol Last Admin: 05/23/18 13:46 Dose: 200 mls/hr Losartan Potassium (Cozaar) 100 mg PO DAILY [facility] Last Admin: 05/23/18 10:49 Dose: 100 mg Metformin HCl (Glucophage) 500 mg PO DAILY [facility] Last Admin: 05/23/18 10:50 Dose: 500 mg Pneumococcal Polyvalent Vaccine (Pneumovax 23 Vaccine) 0.5 ml IM .ONCE ONE Stop: 05/24/18 14:01 Potassium Chloride (Potassium Chloride Oral Soln) 40 meq PO Q4 [facility] Stop: 05/24/18 00:01 Pregabalin (Lyrica) 75 mg PO DAILY [facility] Last Admin: 05/23/18 10:49 Dose: 75 mg Torsemide (Demadex) 20 mg PO DAILY [facility] Last Admin: 05/23/18 10:49 Dose: 20 mg - Labs Labs: 05/21/18 20:10 05/23/18 08:51 PT 17.5 SECONDS (9.7-12.2) H D 05/23/18 08:51 INR 1.6 D 05/23/18 08:51 APTT 31 SECONDS (21-34) 05/21/18 20:10 Attending/Attestation - Attestation I have personally seen and examined this patient.: Yes I have fully participated in the care of the patient.: Yes I have reviewed all pertinent clinical information, including history, physical exam and plan: Yes Notes (Text): 05/23/18 17:50 I have seen and examined patient with GI fellow. In a nutshell this is an 82 year old female with history of CAD/CABG on plavix, CHF, HTN who is admitted to hospital with complaint of progressive abdominal pain. Admitted with elevated transaminases with MRCP pending. Pain is resolved today with no nausea and vomiting and downtrending LFT. Will start clear liquid diet today while awaiting MRCP. Hepatitis and autoimmune serologies
--- NOTE | 2018-05-23 23:28 | CP.PCM.PN ---
Objective - Vital Signs/Intake and Output Vital Signs (last 24 hours): Temp Pulse Resp BP Pulse Ox 97.3 F L 66 20 104/65 98 05/23/18 15:53 05/23/18 15:53 05/23/18 15:53 05/23/18 15:53 05/23/18 15:53 - Medications Medications: Current Medications Aspirin (Ecotrin) 81 mg PO DAILY [facility] Last Admin: 05/23/18 10:50 Dose: 81 mg Carvedilol (Coreg) 6.25 mg PO BID [facility] Last Admin: 05/23/18 22:26 Dose: 6.25 mg Clopidogrel Bisulfate (Plavix) 75 mg PO DAILY [facility] Last Admin: 05/23/18 10:50 Dose: 75 mg Enoxaparin Sodium (Lovenox) 40 mg SC DAILY [facility] Last Admin: 05/23/18 10:50 Dose: 40 mg Famotidine (Pepcid) 20 mg PO BID [facility] Last Admin: 05/23/18 22:26 Dose: 20 mg Piperacillin Sod/Tazobactam (Sod 3.375 gm/ Sodium Chloride) 100 mls @ 200 mls/ hr IVPB Q8H [facility] PRN Reason: Protocol Last Admin: 05/23/18 13:46 Dose: 200 mls/hr Losartan Potassium (Cozaar) 100 mg PO DAILY [facility] Last Admin: 05/23/18 10:49 Dose: 100 mg Metformin HCl (Glucophage) 500 mg PO DAILY [facility] Last Admin: 05/23/18 10:50 Dose: 500 mg Pneumococcal Polyvalent Vaccine (Pneumovax 23 Vaccine) 0.5 ml IM .ONCE ONE Stop: 05/24/18 14:01 Potassium Chloride (Potassium Chloride Oral Soln) 40 meq PO Q4 [facility] Stop: 05/24/18 00:01 Last Admin: 05/23/18 20:27 Dose: 40 meq Pregabalin (Lyrica) 75 mg PO DAILY [facility] Last Admin: 05/23/18 10:49 Dose: 75 mg Torsemide (Demadex) 20 mg PO DAILY [facility] Last Admin: 05/23/18 10:49 Dose: 20 mg - Labs Labs: 05/21/18 20:10 05/23/18 08:51 PT 17.5 SECONDS (9.7-12.2) H D 05/23/18 08:51 INR 1.6 D 05/23/18 08:51 APTT 31 SECONDS (21-34) 05/21/18 20:10
[2018-05-24] MEDS: Potassium Chloride 20 mEq/15 ml LIQ UD PO SCH (00:11)
[2018-05-24] MEDS: Piperacillin/Tazobact 3.375 GM in Sodium Chloride 100 ML IVPB SCH ×3 (05:48→23:08)
[2018-05-24] MEDS: Enoxaparin 40 mg Syringe SC SCH (10:01)
--- NOTE | 2018-05-24 10:08 | MRI ---
PROCEDURE: Magnetic Resonance Cholangiopancreatography HISTORY: Dilated common bile duct and possible gallbladder sludge. COMPARISON: None available. TECHNIQUE: Multiplanar, multisequence MR images of the abdomen were obtained, including heavily T2 weighted MRCP images of the biliary system. Rotating maximum intensity projection images of the biliary system were generated. FINDINGS: MRCP: The common bile duct is mildly dilated measures up to 10 millimeter in the midportion. No evidence of choledocholithiasis. No intrahepatic biliary ductal dilatation. LIVER: No evidence of suspicious lesion or acute pathology in the liver. GALLBLADDER: The gallbladder is mildly distended. No evidence of filling defect in the gallbladder. No evidence of acute cholecystitis. SPLEEN: Unremarkable. PANCREAS: The pancreas is small in size. The main pancreatic duct is not dilated. ADRENALS: No evidence of mass lesion in the adrenal glands. KIDNEYS: Unremarkable. AORTA: No aneurysm. ASCITES: None. OTHER FINDINGS: None. IMPRESSION: Dilated common bile duct without evidence of choledocholithiasis or mass lesion. No evidence of cholelithiasis or cholecystitis. Suboptimal study due to motion artifact. . Preliminary report was submitted by virtual Radiology.
--- NOTE | 2018-05-24 11:16 | CP.PCM.PN ---
<Severino He - Last Filed: 05/24/18 11:16> Subjective - Date & Time of Evaluation Date of Evaluation: 05/24/18 Time of Evaluation: 10:30 - Subjective Subjective: PGY5 GI Follow-up Pt seen and examined bedside denies any abd pain tolerated liquids denies any abd pain denies any fever, chills or diaphoresis ROS: 12 point ROS conducted, neg other than above Objective - Vital Signs/Intake and Output Vital Signs (last 24 hours): Temp Pulse Resp BP Pulse Ox 98.0 F 67 20 90/60 L 96 05/24/18 07:00 05/24/18 07:00 05/24/18 07:00 05/24/18 07:00 05/24/18 07:00 - Medications Medications: Current Medications Aspirin (Ecotrin) 81 mg PO DAILY [facility] Last Admin: 05/24/18 10:01 Dose: 81 mg Carvedilol (Coreg) 6.25 mg PO BID [facility] Last Admin: 05/24/18 10:01 Dose: 6.25 mg Clopidogrel Bisulfate (Plavix) 75 mg PO DAILY [facility] Last Admin: 05/24/18 10:01 Dose: 75 mg Enoxaparin Sodium (Lovenox) 40 mg SC DAILY [facility] Last Admin: 05/24/18 10:01 Dose: 40 mg Famotidine (Pepcid) 20 mg PO BID [facility] Last Admin: 05/24/18 10:01 Dose: 20 mg Piperacillin Sod/Tazobactam (Sod 3.375 gm/ Sodium Chloride) 100 mls @ 200 mls/ hr IVPB Q8H [facility] PRN Reason: Protocol Last Admin: 05/24/18 05:48 Dose: 200 mls/hr Losartan Potassium (Cozaar) 50 mg PO DAILY [facility] Last Admin: 05/24/18 10:01 Dose: 50 mg Metformin HCl (Glucophage) 500 mg PO DAILY [facility] Last Admin: 05/24/18 10:00 Dose: 500 mg Pneumococcal Polyvalent Vaccine (Pneumovax 23 Vaccine) 0.5 ml IM .ONCE ONE Stop: 05/24/18 14:01 Pregabalin (Lyrica) 75 mg PO DAILY [facility] Last Admin: 05/24/18 10:01 Dose: 75 mg Torsemide (Demadex) 20 mg PO DAILY [facility] Last Admin: 05/24/18 10:01 Dose: 20 mg - Labs Labs: 05/21/18 20:10 05/23/18 08:51 PT 17.5 SECONDS (9.7-12.2) H D 05/23/18 08:51 INR 1.6 D 05/23/18 08:51 APTT 31 SECONDS (21-34) 05/21/18 20:10 - Constitutional Appears: Well, No Acute Distress - Head Exam Head Exam: ATRAUMATIC, NORMOCEPHALIC - Eye Exam Eye Exam: Normal appearance - ENT Exam ENT Exam: Mucous Membranes Moist, Normal Exam - Neck Exam Neck Exam: Normal Inspection - Respiratory Exam Respiratory Exam: Clear to Ausculation Bilateral, Rhonchi, Wheezes, NORMAL BREATHING PATTERN. absent: Rales, Respiratory Distress - Cardiovascular Exam Cardiovascular Exam: REGULAR RHYTHM, +S1, +S2 - GI/Abdominal Exam GI & Abdominal Exam: Soft, Normal Bowel Sounds. absent: Distended, Guarding, Rigid, Tenderness, Organomegaly - Extremities Exam Extremities Exam: absent: Joint Swelling, Pedal Edema - Neurological Exam Neurological Exam: Alert, Awake, Oriented x3 - Psychiatric Exam Psychiatric exam: Normal Affect, Normal Mood - Skin Skin Exam: Dry, Intact, Normal Color, Warm Assessment and Plan - Assessment and Plan (Free Text) Assessment: 82F with hx of CABG, HTN, DM presenting with non-focal worsening abominal pain associated with food and weight loss. #Abdominal pain (resolved) #Weight loss #Elevated T. bilirubin (improving) #Coagulopathy #Likely systemic viral infection #CAD s/p CABG #Likely chronic systolic CHF #DM #HTN Plan: -Continue supportive care -MRCP reviewed: + gallstones, but no CBD stone, dilated 1.0cm, cbd with tapering ; will need an oupt EUS to evaluate -Monitor CMP and INR -Continue abx -Continue other medical care per primary team -EGD/colonoscopy as an oupt -recommend cardiology cx before discharge D/W <Marisa Nieves - Last Filed: 05/24/18 14:41> Objective - Vital Signs/Intake and Output Vital Signs (last 24 hours): Temp Pulse Resp BP Pulse Ox 98.0 F 67 20 90/60 L 96 05/24/18 07:00 05/24/18 07:00 05/24/18 07:00 05/24/18 07:00 05/24/18 07:00 - Medications Medications: Current Medications Aspirin (Ecotrin) 81 mg PO DAILY [facility] Last Admin: 05/24/18 10:01 Dose: 81 mg Carvedilol (Coreg) 6.25 mg PO BID [facility] Last Admin: 05/24/18 10:01 Dose: 6.25 mg Clopidogrel Bisulfate (Plavix) 75 mg PO DAILY [facility] Last Admin: 05/24/18 10:01 Dose: 75 mg Enoxaparin Sodium (Lovenox) 40 mg SC DAILY [facility] Last Admin: 05/24/18 10:01 Dose: 40 mg Famotidine (Pepcid) 20 mg PO BID [facility] Last Admin: 05/24/18 10:01 Dose: 20 mg Piperacillin Sod/Tazobactam (Sod 3.375 gm/ Sodium Chloride) 100 mls @ 200 mls/ hr IVPB Q8H [facility] PRN Reason: Protocol Last Admin: 05/24/18 05:48 Dose: 200 mls/hr Losartan Potassium (Cozaar) 50 mg PO DAILY [facility] Last Admin: 05/24/18 10:01 Dose: 50 mg Metformin HCl (Glucophage) 500 mg PO DAILY [facility] Last Admin: 05/24/18 10:00 Dose: 500 mg Pregabalin (Lyrica) 75 mg PO DAILY [facility] Last Admin: 05/24/18 10:01 Dose: 75 mg Torsemide (Demadex) 20 mg PO DAILY [facility] Last Admin: 05/24/18 10:01 Dose: 20 mg - Labs Labs: 05/24/18 11:12 05/24/18 11:12 PT 14.2 SECONDS (9.7-12.2) H 05/24/18 11:12 INR 1.3 05/24/18 11:12 APTT 31 SECONDS (21-34) 05/21/18 20:10 Attending/Attestation - Attestation I have personally seen and examined this patient.: Yes I have fully participated in the care of the patient.: Yes I have reviewed all pertinent clinical information, including history, physical exam and plan: Yes Notes (Text): 05/24/18 14:35 I have seen and examined patient with GI fellow. In a nutshell this is an 82 year old female with history of CAD/CABG on plavix, CHF, HTN who is admitted to hospital with complaint of cough, fluid overload, progressive abdominal pain. Admitted with elevated transaminases with MRCP with dilated bile duct taper with no gallstones. Pain is resolved today with no nausea and vomiting and downtrending LFT. Advance low fat and low salt diet as tolerated. Pending cardiology evaluation
[2018-05-24 11:19] LABS: HEMOGLOBIN 13.8 g/dL (11.0-16.0); MEAN CELL VOLUME 97.9 fL (81.0-99.0); MEAN CORPUSCULAR HEMOGLOBIN 33.1 pg (27.0-31.0); MEAN CORPUSCULAR HGB CONC 33.8 g/dL (33.0-37.0); MEAN PLATELET VOLUME 9.6 fL (7.2-11.7); RBC 4.19 Mil/uL (3.80-5.20); RED CELL DISTRIBUTION WIDTH 17.8 % (11.5-14.5); WHITE BLOOD COUNT 7.2 K/uL (4.8-10.8)
[2018-05-24 11:29] LABS: INR 1.3; PROTHROMBIN TIME 14.2 SECONDS (9.7-12.2)
[2018-05-24 11:39] LABS: ALB/GLOB RATIO 1.2 (1.0-2.1); ALBUMIN 3.5 g/dL (3.5-5.0); CALCIUM 8.5 mg/dl (8.6-10.4)
[2018-05-24] MEDS ORDERED: Pneumococcal 23-Valent Vaccine IM ONE (14:00)
--- NOTE | 2018-05-24 21:52 | CARD ---
APPROVED REPORT EKG Measurement Heart [id number] <Conclusion> Normal sinus rhythm with sinus arrhythmia Nonspecific ST and T wave abnormality Abnormal ECG
--- NOTE | 2018-05-24 23:27 | PN ---
DATE: 05/24/2018 SUBJECTIVE: The patient is feeling better. She denies any abdominal pain. MRCP is pending. PHYSICAL EXAMINATION: VITAL SIGNS: Blood pressure 104/65, pulse 66, respiratory rate 20, temperature 97.3. LUNGS: Clear. ABDOMEN: Soft. EXCHANGE OPERATOR: Normal. ASSESSMENT: 1. Abdominal pain. 2. Dehydration. 3. Hypertension. . PLAN: Awaiting MRCP report. Monitor the patient. Fermín Delgado MD
--- NOTE | 2018-05-24 23:40 | CP.PCM.PN ---
Objective - Vital Signs/Intake and Output Vital Signs (last 24 hours): Temp Pulse Resp BP Pulse Ox 96.4 F L 88 20 100/58 L 97 05/24/18 15:00 05/24/18 20:31 05/24/18 15:00 05/24/18 17:07 05/24/18 15:00 Intake and Output: 05/24/18 05/25/18 18:59 06:59 Intake Total 500 Balance 500 - Medications Medications: Current Medications Aspirin (Ecotrin) 81 mg PO DAILY [facility] Last Admin: 05/24/18 10:01 Dose: 81 mg Carvedilol (Coreg) 6.25 mg PO BID [facility] Last Admin: 05/24/18 20:12 Dose: Not Given Clopidogrel Bisulfate (Plavix) 75 mg PO DAILY [facility] Last Admin: 05/24/18 10:01 Dose: 75 mg Enoxaparin Sodium (Lovenox) 40 mg SC DAILY [facility] Last Admin: 05/24/18 10:01 Dose: 40 mg Famotidine (Pepcid) 20 mg PO BID [facility] Last Admin: 05/24/18 17:07 Dose: 20 mg Furosemide (Lasix) 40 mg IVP DAILY [facility] Stop: 05/27/18 15:31 Last Admin: 05/24/18 17:07 Dose: 40 mg Losartan Potassium (Cozaar) 50 mg PO DAILY [facility] Last Admin: 05/24/18 10:01 Dose: 50 mg Metformin HCl (Glucophage) 500 mg PO DAILY [facility] Last Admin: 05/24/18 10:00 Dose: 500 mg Pregabalin (Lyrica) 75 mg PO DAILY [facility] Last Admin: 05/24/18 10:01 Dose: 75 mg - Labs Labs: 05/24/18 11:12 05/24/18 11:12 PT 14.2 SECONDS (9.7-12.2) H 05/24/18 11:12 INR 1.3 05/24/18 11:12 APTT 31 SECONDS (21-34) 05/21/18 20:10
--- NOTE | 2018-05-25 04:53 | PN ---
DATE: 05/24/2018 SUBJECTIVE: The patient feels better. Less short of breath. Seen by GI. Negative workup. PHYSICAL EXAMINATION: LUNGS: Clear. CVS: S1, S2 plus S3 positive. ABDOMEN: Soft. ASSESSMENT: 1. Congestive heart failure. Cardiac evaluation. 2. Abdominal pain, most likely irritable bowel syndrome. 3. Hypertension. 4. Hyperlipidemia. PLAN: Medical management. Monitor the patient. Fermín Delgado MD
--- NOTE | 2018-05-25 06:04 | CP.PCM.CON ---
History of Present Illness - History of Present Illness History of Present Illness: CC persistent cough w/ elevated pro-BNP HPI Mrs. He is a very pleasant 82yo female with history of CABG, HTN, DM who presents with acute on chronic abdominal pain. The pain originally presented 6months ago and has been intermittent. The abdominal pain is now more frequent and highly associated with food. The pain is moderate and diffuse. She admits nausea without much emesis and weight loss. She denies fever, chills, tremors. She has been evaluated by primary care and GI services. She was scheduled for EGD and colon this week but unable to make appt due to present symptoms. She has been told she may need her GB removed at some point by her PCP per the . Past Patient History - Infectious Disease Hx of Infectious Diseases: None - Past Medical History & Family History Past Medical History?: Yes - Past Social History Smoking Status: Never Smoked - CARDIAC Hx Cardiac Disorders: Yes Hx Hypercholesterolemia: Yes Hx Hypertension: Yes - PULMONARY Hx Respiratory Disorders: No - NEUROLOGICAL Hx Neurological Disorder: No - HEENT Hx HEENT Problems: Yes Other/Comment: family states pt has 'sick look in eyes' - RENAL Hx Chronic Kidney Disease: No - ENDOCRINE/METABOLIC Hx Endocrine Disorders: Yes Hx Diabetes Mellitus Type 2: Yes - HEMATOLOGICAL/ONCOLOGICAL Hx Blood Disorders: No - INTEGUMENTARY Hx Dermatological Problems: No - MUSCULOSKELETAL/RHEUMATOLOGICAL Hx Musculoskeletal Disorders: No Hx Falls: No - GASTROINTESTINAL Hx Gastrointestinal Disorders: No - GENITOURINARY/GYNECOLOGICAL Hx Genitourinary Disorders: No - PSYCHIATRIC Hx Psychophysiologic Disorder: No Hx Substance Use: No - SURGICAL HISTORY Hx Surgeries: Yes Hx Coronary Artery Bypass Graft: Yes (2011) - ANESTHESIA Hx Anesthesia: Yes Hx Anesthesia Reactions: No Hx Malignant Hyperthermia: No Has any member of the family had a problem w/ anesthesia?: No Meds Allergies/Adverse Reactions: Allergies Allergy/AdvReac Type Severity Reaction Status Date / Time No Known Allergies Allergy Verified 05/21/18 19:30 - Medications Medications: Current Medications Aspirin (Ecotrin) 81 mg PO DAILY [facility] Last Admin: 05/24/18 10:01 Dose: 81 mg Carvedilol (Coreg) 6.25 mg PO BID [facility] Last Admin: 05/24/18 20:12 Dose: Not Given Clopidogrel Bisulfate (Plavix) 75 mg PO DAILY [facility] Last Admin: 05/24/18 10:01 Dose: 75 mg Enoxaparin Sodium (Lovenox) 40 mg SC DAILY [facility] Last Admin: 05/24/18 10:01 Dose: 40 mg Famotidine (Pepcid) 20 mg PO BID [facility] Last Admin: 05/24/18 17:07 Dose: 20 mg Furosemide (Lasix) 40 mg IVP DAILY [facility] Stop: 05/27/18 15:31 Last Admin: 05/24/18 17:07 Dose: 40 mg Losartan Potassium (Cozaar) 50 mg PO DAILY [facility] Last Admin: 05/24/18 10:01 Dose: 50 mg Metformin HCl (Glucophage) 500 mg PO DAILY [facility] Last Admin: 05/24/18 10:00 Dose: 500 mg Pregabalin (Lyrica) 75 mg PO DAILY [facility] Last Admin: 05/24/18 10:01 Dose: 75 mg Results - Vital Signs Recent Vital Signs: Last Vital Signs Temp 98.8 F 05/24/18 23:05 Pulse 86 05/25/18 01:00 Resp 20 05/24/18 23:05 BP 119/73 05/24/18 23:05 Pulse Ox 98 05/24/18 23:05 - Labs Result Diagrams: 05/26/18 06:38 05/26/18 06:38 Labs: Laboratory Results - last 24 hr 05/24/18 05/24/18 05/24/18 06:33 11:12 11:12 WBC 7.2 RBC 4.19 Hgb 13.8 Hct 41.0 MCV 97.9 MCH 33.1 H MCHC 33.8 RDW 17.8 H Plt Count 159 MPV 9.6 PT 14.2 H INR 1.3 Sodium Potassium Chloride Carbon Dioxide Anion Gap BUN Creatinine Est GFR ( Amer) Est GFR (Non-Af Amer) POC Glucose (mg/dL) 84 Random Glucose Calcium Total Bilirubin AST ALT Alkaline Phosphatase Total Protein Albumin Globulin Albumin/Globulin Ratio 05/24/18 05/24/18 05/24/18 11:12 11:34 18:42 WBC RBC Hgb Hct MCV MCH MCHC RDW Plt Count MPV PT INR Sodium 138 Potassium 4.6 Chloride 101 Carbon Dioxide 24 Anion Gap 17 BUN 14 Creatinine 1.1 Est GFR ( Amer) 58 Est GFR (Non-Af Amer) 48 POC Glucose (mg/dL) 171 H 142 H Random Glucose 126 H Calcium 8.5 L Total Bilirubin 1.2 AST 37 H D ALT 37 Alkaline Phosphatase 83 Total Protein 6.5 Albumin 3.5 Globulin 3.0 Albumin/Globulin Ratio 1.2 05/24/18 21:41 WBC RBC Hgb Hct MCV MCH MCHC RDW Plt Count MPV PT INR Sodium Potassium Chloride Carbon Dioxide Anion Gap BUN Creatinine Est GFR ( Amer) Est GFR (Non-Af Amer) POC Glucose (mg/dL) 140 H Random Glucose Calcium Total Bilirubin AST ALT Alkaline Phosphatase Total Protein Albumin Globulin Albumin/Globulin Ratio Assessment & Plan - Assessment and Plan (Free Text) Assessment: CHF CAD Abdominal pain? etiol Plan: Echo Lasix, arbs, carvedilol BP permitting In view of poor LV systolic function, we will make arrangement for Lifevest - Date & Time Date: 05/25/18 Time: 07:40
--- NOTE | 2018-05-25 07:46 | PN ---
DATE: 05/22/2018 CHIEF COMPLAINT: Abdominal pain for one month. HISTORY OF PRESENT ILLNESS: This is an 82-year-old [place] female with history of coronary artery disease, status post CABG; hypertension; diabetes. The patient has acute on chronic abdominal pain. The patient started to have pain about 6 months ago, which has been intermittent; however, in the last few days, pain has been getting worse more frequent, more intense, and the patient is not able to tolerate food. The patient is virtually not able to eat anything. Pain is moderate. She has diffuse abdominal pain. The patient is a poor historian. She had nausea, but not vomiting, and she has a history of weight loss. The patient denies any fever, chills, rigors, She denies any polyuria, polydipsia or polyphagia. She has been scheduled for GI procedure in the past with no result. The patient denies any history of joint pain or hip pain. The patient denies any chest pain. The patient is not short of breath. She also has cough and material. No dysuria. PAST MEDICAL HISTORY: CAD, CABG, hypertension. SOCIAL HISTORY: Nonsmoker. Non-EtOH user. MEDICATIONS: Current medications at home are Lyrica, Protonix, Flagyl, Amaryl, Plavix, carvedilol, aspirin, metformin, Demadex, Micardis. PHYSICAL EXAMINATION: GENERAL: An elderly female, in no acute distress. VITAL SIGNS: Blood pressure 111/65, pulse 63, respiratory rate 18, temperature 97.4. SKIN: Senile turgor. No bruises. No purpura. HEENT: Atraumatic and normocephalic. The patient has right-sided ptosis with facial asymmetry with left nasolabial fold flat. Unable to close her left eye. NECK: Supple. No JVD. No lymph nodes. CHEST WALL: Bilateral symmetrical expansion. LUNGS: Clear. No rale, no rhonchi. CVS: S1, S2, regular. No heave noted. ABDOMEN: Soft and nontender. Bowel sounds are positive. RECTAL AND PELVIS: Unable to cooperate. METAL BUGGY OPERATOR: The patient is arousable. ASSESSMENT: 1. Abdominal pain. The patient has dilated bile duct, rule out cholelithiasis, choledocholithiasis, pancreatic mass. 2. Dehydration. 3. Hypertension. 4. Congestive heart failure. PLAN: Antibiotics. MRCP. GI followup. Fermín Delgado MD
--- NOTE | 2018-05-25 07:57 | CP.PCM.PN ---
<Ethan Atkins - Last Filed: 05/25/18 11:06> Subjective - Date & Time of Evaluation Date of Evaluation: 05/25/18 Time of Evaluation: 07:54 - Subjective Subjective: GI Fellow PGY4, progress note. E-anatomic pathology assistant attempted but patient did not cooperate. Patient sitting up at bedside appears comfortable. Nursing reports patient is tolerating heart healthy diet and voiding appropriately. Patient does appear weak and off balance when walking to bathroom per nursing. No reports of abdominal pain, vomiting. 12pt ROS attempted, but patient non-compliant with translation device. Objective - Vital Signs/Intake and Output Vital Signs (last 24 hours): Temp Pulse Resp BP Pulse Ox 98.8 F 86 20 119/73 98 05/24/18 23:05 05/25/18 01:00 05/24/18 23:05 05/24/18 23:05 05/24/18 23:05 Intake and Output: 05/25/18 05/25/18 06:59 18:59 Intake Total 500 Balance 500 - Medications Medications: Current Medications Aspirin (Ecotrin) 81 mg PO DAILY [facility] Last Admin: 05/24/18 10:01 Dose: 81 mg Carvedilol (Coreg) 6.25 mg PO BID [facility] Last Admin: 05/24/18 20:12 Dose: Not Given Clopidogrel Bisulfate (Plavix) 75 mg PO DAILY [facility] Last Admin: 05/24/18 10:01 Dose: 75 mg Enoxaparin Sodium (Lovenox) 40 mg SC DAILY [facility] Last Admin: 05/24/18 10:01 Dose: 40 mg Famotidine (Pepcid) 20 mg PO BID [facility] Last Admin: 05/24/18 17:07 Dose: 20 mg Furosemide (Lasix) 40 mg IVP DAILY [facility] Stop: 05/27/18 15:31 Last Admin: 05/24/18 17:07 Dose: 40 mg Losartan Potassium (Cozaar) 50 mg PO DAILY [facility] Last Admin: 05/24/18 10:01 Dose: 50 mg Metformin HCl (Glucophage) 500 mg PO DAILY [facility] Last Admin: 05/24/18 10:00 Dose: 500 mg Pregabalin (Lyrica) 75 mg PO DAILY [facility] Last Admin: 05/24/18 10:01 Dose: 75 mg - Labs Labs: 05/24/18 11:12 05/24/18 11:12 PT 14.2 SECONDS (9.7-12.2) H 05/24/18 11:12 INR 1.3 05/24/18 11:12 APTT 31 SECONDS (21-34) 05/21/18 20:10 - Constitutional Appears: No Acute Distress, Confused, Chronically Ill - Head Exam Head Exam: ATRAUMATIC, NORMAL INSPECTION, NORMOCEPHALIC - Eye Exam Eye Exam: EOMI, Normal appearance, PERRL - ENT Exam ENT Exam: Mucous Membranes Moist, Normal Exam - Respiratory Exam Respiratory Exam: Clear to Ausculation Bilateral, NORMAL BREATHING PATTERN. absent: Wheezes - Cardiovascular Exam Cardiovascular Exam: REGULAR RHYTHM, +S1, +S2 - GI/Abdominal Exam GI & Abdominal Exam: Soft, Normal Bowel Sounds. absent: Tenderness - Extremities Exam Extremities Exam: Full ROM, Normal Capillary Refill, Normal Inspection. absent : Pedal Edema - Skin Skin Exam: Dry, Intact, Normal Color Assessment and Plan - Assessment and Plan (Free Text) Assessment: 82F with hx of CABG, HTN, DM presenting with non-focal worsening abominal pain associated with food and weight loss. #Abdominal pain (resolved) #Weight loss #Elevated T. bilirubin (improving) #Coagulopathy #Likely systemic viral infection - negative flu #CAD s/p CABG #Likely chronic systolic CHF #DM #HTN Plan: -Continue supportive care -MRCP reviewed: dilated 1.0cm cbd with tapering; will need an oupt EUS to evaluate -Liver enzymes resolving and tolerating heart healthy diet. -Discussed with to call Dr. Puentes office to set-up outpt EUS. He understands. -Abx per primary, she does not appear toxic or with bacterial infection. -Continue other medical care per primary team -EGD/colonoscopy and EUS as an outpt -Okay to discharge from GI perspective. We will sign-off now. Thank you for this kind consult. Please call for any remaining questions. <Lee Puentes - Last Filed: 05/25/18 11:59> Objective - Vital Signs/Intake and Output Vital Signs (last 24 hours): Temp Pulse Resp BP Pulse Ox 97.3 F L 86 20 123/77 100 05/25/18 07:00 05/25/18 09:32 05/25/18 07:00 05/25/18 09:31 05/25/18 07:00 Intake and Output: 05/25/18 05/25/18 06:59 18:59 Intake Total 500 Balance 500 - Medications Medications: Current Medications Aspirin (Ecotrin) 81 mg PO DAILY [facility] Last Admin: 05/25/18 09:30 Dose: 81 mg Carvedilol (Coreg) 6.25 mg PO BID [facility] Last Admin: 05/25/18 09:31 Dose: 6.25 mg Clopidogrel Bisulfate (Plavix) 75 mg PO DAILY [facility] Last Admin: 05/25/18 09:31 Dose: 75 mg Enoxaparin Sodium (Lovenox) 40 mg SC DAILY [facility] Last Admin: 05/25/18 09:31 Dose: 40 mg Famotidine (Pepcid) 20 mg PO BID [facility] Last Admin: 05/25/18 09:30 Dose: 20 mg Furosemide (Lasix) 40 mg IVP DAILY [facility] Stop: 05/27/18 15:31 Last Admin: 05/25/18 09:31 Dose: 40 mg Losartan Potassium (Cozaar) 50 mg PO DAILY [facility] Last Admin: 05/25/18 09:31 Dose: 50 mg Metformin HCl (Glucophage) 500 mg PO DAILY [facility] Last Admin: 05/25/18 09:30 Dose: 500 mg Pregabalin (Lyrica) 75 mg PO DAILY [facility] Last Admin: 05/25/18 09:30 Dose: 75 mg - Labs Labs: 05/24/18 11:12 05/24/18 11:12 PT 14.2 SECONDS (9.7-12.2) H 05/24/18 11:12 INR 1.3 05/24/18 11:12 APTT 31 SECONDS (21-34) 05/21/18 20:10 Attending/Attestation - Attestation I have personally seen and examined this patient.: Yes I have fully participated in the care of the patient.: Yes I have reviewed all pertinent clinical information, including history, physical exam and plan: Yes Notes (Text): 05/25/18 11:54 I have seen and examined patient with GI fellow. No acute events overnight, she is seen resting in bed comfortably. Her abdominal pain has resolved and she is tolerating PO diet without difficulty. She denies nausea, vomiting, fever/chills. HTN CAD/CABG CHF Abdominal pain - resolved MRCP reviewed by me showing dilated CBD without presence of choledocholithiasis - Diet as tolerated - LFTs stable, continue to monitor - Follow up cardiology recommendations, patient scheduled for echo today - Given abdominal pain and abnormal imaging results, she would benefit from outpatient EUS for further evaluation. Will attempt to set up within the upcoming week. From GI perspective, ok to discharge with subsequent outpatient follow up. Will sign off case, please reconsult as necessary, thank you.
[2018-05-25] MEDS: Enoxaparin 40 mg Syringe SC SCH (09:31)
--- NOTE | 2018-05-25 21:09 | CARD ---
APPROVED REPORT EXAM: Two-dimensional and M-mode echocardiogram with Doppler and color Doppler. Other Information Quality : GoodRhythm : INDICATION Congestive Heart Failure Surgery/Intervention CABG: Date: 2011 RISK FACTORS Hypertension Hyperlipidemia Diabetes 2D DIMENSIONS IVSd0.7 (0.7-1.1cm)LVDd4.9 (3.9-5.9cm) PWd0.9 (0.7-1.1cm)LVDs4.3 (2.5-4.0cm) FS (%) 12.3 %LVEF (%)26.5 (>50%) M-Mode DIMENSIONS Left Atrium (MM)3.76 (2.5-4.0cm)IVSd0.84 (0.7-1.1cm) Aortic Root2.76 (2.2-3.7cm)LVDd5.09 (4.0-5.6cm) PWd0.98 (0.7-1.1cm)FS (%) 14 % LVDs4.38 (2.0-3.8cm)LVEF (%)30 (>50%) Mitral Valve MV E Gpgdizjo250.4cm/sMV A Fwgrswfy31.7cm/sE/A ratio2.0 TDI E/Lateral E'0.0E/Medial E'0.0 Tricuspid Valve TR Peak Oqqzeidf462gk/sTR Peak Gr.[id number] LEFT VENTRICLE The left ventricle is normal size. There is normal left ventricular wall thickness. The left ventricular function is severely reduced. The left ventricular ejection fraction is 22% The mid/apical-septal, apical, inferior and anteroapical chew are akinetic. Transmitral Doppler flow pattern is Grade III No left ventricle thrombus noted on this study. There is no ventricular septal defect visualized. There is no left ventricular aneurysm. There is no mass noted in the left ventricle. RIGHT VENTRICLE The right ventricle is normal size. There is normal right ventricular wall thickness. The right ventricular systolic function is normal. ATRIA The left atrium size is upper normal. The right atrium size is normal. The interatrial septum is intact with no evidence for an atrial septal defect. AORTIC VALVE The aortic valve is normal in structure and function. No aortic regurgitation is present. There is no aortic valvular stenosis. There is no aortic valvular vegetation. MITRAL VALVE The mitral valve is normal in structure and function. There is no evidence of mitral valve prolapse. There is no mitral valve stenosis. There is moderate mitral valve regurgitation noted. TRICUSPID VALVE The tricuspid valve is normal in structure and function. There is mild tricuspid valve regurgitation noted. estimated PA systolic pressure is 53 mm Hg. There is no tricuspid valve prolapse or vegetation. There is no tricuspid valve stenosis. PULMONIC VALVE The pulmonary valve is normal in structure and function. There is no pulmonic valvular regurgitation. There is no pulmonic valvular stenosis. GREAT VESSELS The aortic root is normal in size. The ascending aorta is normal in size. The pulmonary artery is normal. The IVC is normal in size and collapses >50% with inspiration. PERICARDIAL EFFUSION The pericardium appears normal. There is no pleural effusion. <Conclusion> The left ventricular function is severely reduced. The mid/apical-septal, apical, inferior and anteroapical chew are akinetic. The left ventricular ejection fraction is 22% There is moderate mitral valve regurgitation noted. Transmitral Doppler flow pattern is Grade III There is mild tricuspid valve regurgitation noted. estimated PA systolic pressure is 53 mm Hg.
[2018-05-25] MEDS ORDERED: (Novolin R) Insulin Human Regular 100 units/ml vial SC ONE (22:22)
--- NOTE | 2018-05-25 23:54 | CP.PCM.PN ---
Subjective - Date & Time of Evaluation Date of Evaluation: 05/25/18 Time of Evaluation: 18:00 - Subjective Subjective: Pt seen and examined at bedside Objective - Vital Signs/Intake and Output Vital Signs (last 24 hours): Temp Pulse Resp BP Pulse Ox 98.1 F 86 20 117/80 98 05/25/18 15:03 05/25/18 16:08 05/25/18 15:03 05/25/18 15:03 05/25/18 15:03 Intake and Output: 05/25/18 05/26/18 18:59 06:59 Intake Total 600 Balance 600 - Medications Medications: Current Medications Aspirin (Ecotrin) 81 mg PO DAILY [facility] Last Admin: 05/25/18 09:30 Dose: 81 mg Carvedilol (Coreg) 6.25 mg PO BID [facility] Last Admin: 05/25/18 17:04 Dose: 6.25 mg Clopidogrel Bisulfate (Plavix) 75 mg PO DAILY [facility] Last Admin: 05/25/18 09:31 Dose: 75 mg Enoxaparin Sodium (Lovenox) 30 mg SC DAILY [facility] Famotidine (Pepcid) 20 mg PO BID [facility] Last Admin: 05/25/18 17:04 Dose: 20 mg Furosemide (Lasix) 40 mg IVP DAILY [facility] Stop: 05/27/18 15:31 Last Admin: 05/25/18 09:31 Dose: 40 mg Insulin Aspart (Novolog) 0 unit SC [facility] PRN Reason: Protocol Losartan Potassium (Cozaar) 50 mg PO DAILY [facility] Last Admin: 05/25/18 09:31 Dose: 50 mg Metformin HCl (Glucophage) 500 mg PO DAILY [facility] Last Admin: 05/25/18 09:30 Dose: 500 mg Pregabalin (Lyrica) 75 mg PO DAILY [facility] Last Admin: 05/25/18 09:30 Dose: 75 mg - Labs Labs: 05/24/18 11:12 05/24/18 11:12 PT 14.2 SECONDS (9.7-12.2) H 05/24/18 11:12 INR 1.3 05/24/18 11:12 APTT 31 SECONDS (21-34) 05/21/18 20:10
[2018-05-26 07:25] LABS: BASO # 0.1 K/uL (0.0-0.2); BASO % 0.8 % (0.0-2.0); EOS # 0.5 K/uL (0.0-0.7); EOS % 7.1 % (0.0-4.0); HEMOGLOBIN 12.9 g/dL (11.0-16.0); LYMPH # 1.5 K/uL (1.0-4.3); LYMPH % 22.9 % (20.0-40.0); MEAN CELL VOLUME 96.7 fL (81.0-99.0); MEAN CORPUSCULAR HEMOGLOBIN 32.8 pg (27.0-31.0); MEAN CORPUSCULAR HGB CONC 33.9 g/dL (33.0-37.0); MONO # 0.9 K/uL (0.0-0.8); MONO % 13.7 % (0.0-10.0); NEUT # 3.6 K/uL (1.8-7.0); NEUT % 55.5 % (50.0-75.0); NRBC % 0.2 % (0.0-2.0); RBC 3.93 Mil/uL (3.80-5.20); RED CELL DISTRIBUTION WIDTH 17.3 % (11.5-14.5); WHITE BLOOD COUNT 6.5 K/uL (4.8-10.8)
[2018-05-26 07:38] LABS: ALB/GLOB RATIO 1.3 (1.0-2.1); ALBUMIN 3.3 g/dL (3.5-5.0); ALT/SGPT 31 U/L (9-52); AST/SGOT 28 U/L (14-36); BLOOD UREA NITROGEN 14 mg/dL (7-17); CALCIUM 8.4 mg/dl (8.6-10.4); GFR AFRICAN-AMERICAN > 60; GFR NON-AFRICAN AMERICAN 60
[2018-05-26] MEDS: (Novolog) Insulin Aspart, Recombinant 100 u/ml 10 ml vial SC SCH ×4 (08:05→21:41)
[2018-05-26] MEDS: Enoxaparin 30 mg Syringe SC SCH (09:37)
--- NOTE | 2018-05-26 23:34 | CP.PCM.PN ---
Subjective - Date & Time of Evaluation Date of Evaluation: 05/26/18 Time of Evaluation: 07:45 - Subjective Subjective: OOB sitting on a chair looks comfortable Objective - Vital Signs/Intake and Output Vital Signs (last 24 hours): Temp Pulse Resp BP Pulse Ox 97.5 F L 89 18 109/72 96 05/26/18 16:00 05/26/18 20:35 05/26/18 16:00 05/26/18 16:00 05/26/18 16:00 Intake and Output: 05/26/18 05/27/18 18:59 06:59 Intake Total 350 Balance 350 - Medications Medications: Current Medications Aspirin (Ecotrin) 81 mg PO DAILY [facility] Last Admin: 05/26/18 09:37 Dose: 81 mg Carvedilol (Coreg) 6.25 mg PO BID [facility] Last Admin: 05/26/18 17:21 Dose: 6.25 mg Clopidogrel Bisulfate (Plavix) 75 mg PO DAILY [facility] Last Admin: 05/26/18 09:37 Dose: 75 mg Enoxaparin Sodium (Lovenox) 30 mg SC DAILY [facility] Last Admin: 05/26/18 09:37 Dose: 30 mg Famotidine (Pepcid) 20 mg PO BID [facility] Last Admin: 05/26/18 17:21 Dose: 20 mg Furosemide (Lasix) 40 mg IVP DAILY [facility] Stop: 05/27/18 15:31 Last Admin: 05/26/18 10:09 Dose: Not Given Insulin Aspart (Novolog) 0 unit SC [facility] PRN Reason: Protocol Last Admin: 05/26/18 21:41 Dose: Not Given Losartan Potassium (Cozaar) 50 mg PO DAILY [facility] Last Admin: 05/26/18 09:37 Dose: 50 mg Metformin HCl (Glucophage) 500 mg PO DAILY [facility] Last Admin: 05/26/18 09:38 Dose: Not Given Pregabalin (Lyrica) 75 mg PO DAILY [facility] Last Admin: 05/26/18 09:37 Dose: 75 mg - Labs Labs: 05/26/18 06:38 05/26/18 06:38 PT 14.2 SECONDS (9.7-12.2) H 05/24/18 11:12 INR 1.3 05/24/18 11:12 APTT 31 SECONDS (21-34) 05/21/18 20:10 - Constitutional Appears: Non-toxic - Head Exam Head Exam: NORMAL INSPECTION - Eye Exam Eye Exam: absent: Scleral icterus - Neck Exam Neck Exam: Full ROM - Cardiovascular Exam Cardiovascular Exam: REGULAR RHYTHM - GI/Abdominal Exam GI & Abdominal Exam: Soft. absent: Tenderness - Extremities Exam Extremities Exam: absent: Calf Tenderness, Pedal Edema - Neurological Exam Neurological Exam: Alert Assessment and Plan - Assessment and Plan (Free Text) Assessment: CHF HTN T2dm Plan: Will make arrangement for Lifevest Lexiscan
--- NOTE | 2018-05-27 00:06 | CP.PCM.PN ---
Subjective - Date & Time of Evaluation Date of Evaluation: 05/26/18 Time of Evaluation: 17:35 - Subjective Subjective: pt seen & examined , pt needs arrythmia vest Objective - Vital Signs/Intake and Output Vital Signs (last 24 hours): Temp Pulse Resp BP Pulse Ox 97.5 F L 89 18 109/72 96 05/26/18 16:00 05/26/18 20:35 05/26/18 16:00 05/26/18 16:00 05/26/18 16:00 Intake and Output: 05/26/18 05/27/18 18:59 06:59 Intake Total 350 Balance 350 - Medications Medications: Current Medications Aspirin (Ecotrin) 81 mg PO DAILY [facility] Last Admin: 05/26/18 09:37 Dose: 81 mg Carvedilol (Coreg) 6.25 mg PO BID [facility] Last Admin: 05/26/18 17:21 Dose: 6.25 mg Clopidogrel Bisulfate (Plavix) 75 mg PO DAILY [facility] Last Admin: 05/26/18 09:37 Dose: 75 mg Enoxaparin Sodium (Lovenox) 30 mg SC DAILY [facility] Last Admin: 05/26/18 09:37 Dose: 30 mg Famotidine (Pepcid) 20 mg PO BID [facility] Last Admin: 05/26/18 17:21 Dose: 20 mg Furosemide (Lasix) 40 mg IVP DAILY [facility] Stop: 05/27/18 15:31 Last Admin: 05/26/18 10:09 Dose: Not Given Insulin Aspart (Novolog) 0 unit SC [facility] PRN Reason: Protocol Last Admin: 05/26/18 21:41 Dose: Not Given Losartan Potassium (Cozaar) 50 mg PO DAILY [facility] Last Admin: 05/26/18 09:37 Dose: 50 mg Metformin HCl (Glucophage) 500 mg PO DAILY [facility] Last Admin: 05/26/18 09:38 Dose: Not Given Pregabalin (Lyrica) 75 mg PO DAILY [facility] Last Admin: 05/26/18 09:37 Dose: 75 mg - Labs Labs: 05/26/18 06:38 05/26/18 06:38 PT 14.2 SECONDS (9.7-12.2) H 05/24/18 11:12 INR 1.3 05/24/18 11:12 APTT 31 SECONDS (21-34) 05/21/18 20:10 - Constitutional Appears: No Acute Distress - Head Exam Head Exam: ATRAUMATIC, NORMAL INSPECTION, NORMOCEPHALIC - Eye Exam Eye Exam: EOMI, Normal appearance, PERRL Pupil Exam: NORMAL ACCOMODATION, PERRL - Cardiovascular Exam Cardiovascular Exam: Irregular Rhythm, +S1, +S2. absent: Murmur - GI/Abdominal Exam GI & Abdominal Exam: Soft, Normal Bowel Sounds. absent: Tenderness - Rectal Exam Rectal Exam: Deferred Assessment and Plan (1) Hypokalemia Status: Acute (2) Abdominal pain Status: Acute (3) CHF (congestive heart failure) Assessment & Plan: pending echo cardiolgram arrythmia vest cardiology eval beta dionna Status: Acute
[2018-05-27] MEDS: (Novolog) Insulin Aspart, Recombinant 100 u/ml 10 ml vial SC SCH ×5 (07:59→22:15)
[2018-05-27] MEDS: Enoxaparin 30 mg Syringe SC SCH (09:22)
--- NOTE | 2018-05-27 15:58 | CP.PCM.PN ---
Subjective - Date & Time of Evaluation Date of Evaluation: 05/27/18 Time of Evaluation: 11:30 - Subjective Subjective: Patient seen an d examined denies any chest pain, dizziness,palpitations , abdominal pain, N/V/D tolerating diet c/o sob on minimal exertion a febrile Objective - Vital Signs/Intake and Output Vital Signs (last 24 hours): Temp Pulse Resp BP Pulse Ox 98 F 77 20 110/74 97 05/27/18 07:45 05/27/18 07:45 05/27/18 07:45 05/27/18 09:21 05/27/18 07:45 - Medications Medications: Current Medications Aspirin (Ecotrin) 81 mg PO DAILY [facility] Last Admin: 05/27/18 09:21 Dose: 81 mg Carvedilol (Coreg) 6.25 mg PO BID [facility] Last Admin: 05/27/18 09:21 Dose: 6.25 mg Clopidogrel Bisulfate (Plavix) 75 mg PO DAILY [facility] Last Admin: 05/27/18 09:21 Dose: 75 mg Enoxaparin Sodium (Lovenox) 30 mg SC DAILY [facility] Last Admin: 05/27/18 09:22 Dose: 30 mg Famotidine (Pepcid) 20 mg PO BID [facility] Last Admin: 05/27/18 09:21 Dose: 20 mg Insulin Aspart (Novolog) 0 unit SC [facility] PRN Reason: Protocol Last Admin: 05/27/18 12:58 Dose: 1 u Losartan Potassium (Cozaar) 50 mg PO DAILY [facility] Last Admin: 05/27/18 09:21 Dose: 50 mg Metformin HCl (Glucophage) 500 mg PO DAILY [facility] Last Admin: 05/27/18 09:22 Dose: 500 mg Pregabalin (Lyrica) 75 mg PO DAILY [facility] Last Admin: 05/27/18 09:21 Dose: 75 mg - Labs Labs: 05/26/18 06:38 05/26/18 06:38 PT 14.2 SECONDS (9.7-12.2) H 05/24/18 11:12 INR 1.3 05/24/18 11:12 APTT 31 SECONDS (21-34) 05/21/18 20:10 - Constitutional Appears: Well, Non-toxic, No Acute Distress - ENT Exam ENT Exam: Mucous Membranes Moist - Respiratory Exam Respiratory Exam: Decreased Breath Sounds - Cardiovascular Exam Cardiovascular Exam: REGULAR RHYTHM, +S1, +S2 - GI/Abdominal Exam GI & Abdominal Exam: Soft, Normal Bowel Sounds - Neurological Exam Neurological Exam: Alert, Awake, Oriented x3 Assessment and Plan (1) Abdominal pain Assessment & Plan: Dr. Puentes GI consulted MRCP DONE- dilated 1.0cm cbd with tapering Liver enzymes resolving and tolerating heart healthy diet. f/u with Dr. Puentes office for outpt EUS. EGD/colonoscopy and EUS as an outpt Status: Acute (2) CHF (congestive heart failure) Assessment & Plan: continue lasix IV echo done - EF 22% non ischemic cardiomayoptahy Dr. Street on cardiology consult recommends life vest and lexican out patient when patient more stable Status: Acute (3) Diabetes Assessment & Plan: continue metformin and sliding scale Status: Chronic - Assessment and Plan (Free Text) Assessment: A/P 82yo female with history of CABG, HTN, DM who is admitted with with acute on chronic abdominal pain and exc. CHF ( non ischemic cardiomyopathy) EF - 22% and patient requires life vest
--- NOTE | 2018-05-27 22:32 | CP.PCM.PN ---
Subjective - Date & Time of Evaluation Date of Evaluation: 05/27/18 Time of Evaluation: 20:00 - Subjective Subjective: Pt seen and examined at bedside, Objective - Vital Signs/Intake and Output Vital Signs (last 24 hours): Temp Pulse Resp BP Pulse Ox 97.8 F 81 20 114/72 100 05/27/18 15:09 05/27/18 17:37 05/27/18 15:09 05/27/18 17:37 05/27/18 15:09 - Medications Medications: Current Medications Aspirin (Ecotrin) 81 mg PO DAILY [facility] Last Admin: 05/27/18 09:21 Dose: 81 mg Carvedilol (Coreg) 6.25 mg PO BID [facility] Last Admin: 05/27/18 17:35 Dose: 6.25 mg Clopidogrel Bisulfate (Plavix) 75 mg PO DAILY [facility] Last Admin: 05/27/18 09:21 Dose: 75 mg Enoxaparin Sodium (Lovenox) 30 mg SC DAILY [facility] Last Admin: 05/27/18 09:22 Dose: 30 mg Famotidine (Pepcid) 20 mg PO BID [facility] Last Admin: 05/27/18 17:35 Dose: 20 mg Furosemide (Lasix) 20 mg IVP DAILY [facility] Insulin Aspart (Novolog) 0 unit SC [facility] PRN Reason: Protocol Last Admin: 05/27/18 22:15 Dose: Not Given Losartan Potassium (Cozaar) 50 mg PO DAILY [facility] Last Admin: 05/27/18 09:21 Dose: 50 mg Metformin HCl (Glucophage) 500 mg PO DAILY [facility] Last Admin: 05/27/18 09:22 Dose: 500 mg Pregabalin (Lyrica) 75 mg PO DAILY [facility] Last Admin: 05/27/18 09:21 Dose: 75 mg - Labs Labs: 05/26/18 06:38 05/26/18 06:38 PT 14.2 SECONDS (9.7-12.2) H 05/24/18 11:12 INR 1.3 05/24/18 11:12 APTT 31 SECONDS (21-34) 05/21/18 20:10 Assessment and Plan (1) Hypokalemia Status: Acute (2) Abdominal pain Status: Acute (3) CHF (congestive heart failure) Status: Acute
[2018-05-28 07:11] LABS: BLOOD UREA NITROGEN 15 mg/dL (7-17); CALCIUM 8.7 mg/dl (8.6-10.4); GFR AFRICAN-AMERICAN > 60; GFR NON-AFRICAN AMERICAN > 60
[2018-05-28] MEDS: (Novolog) Insulin Aspart, Recombinant 100 u/ml 10 ml vial SC SCH ×3 (07:38→17:00)
[2018-05-28 08:09] VITALS: RESP 20
[2018-05-28] MEDS: Enoxaparin 30 mg Syringe SC SCH (09:25)
--- NOTE | 2018-05-28 13:52 | CP.PCM.PN ---
Subjective - Date & Time of Evaluation Date of Evaluation: 05/28/18 Time of Evaluation: 11:30 - Subjective Subjective: Patient seen an d examined today awake, alert, forgetful , denies any chest pain, sob, headache, palpitations, abdominal pain N/V/D, tolerating diet No overnight events recorded on monitor Objective - Vital Signs/Intake and Output Vital Signs (last 24 hours): Temp Pulse Resp BP Pulse Ox 98.4 F 76 20 109/64 99 05/28/18 07:25 05/28/18 07:25 05/28/18 07:25 05/28/18 09:26 05/28/18 07:25 Intake and Output: 05/28/18 05/28/18 06:59 18:59 Intake Total 320 Balance 320 - Medications Medications: Current Medications Aspirin (Ecotrin) 81 mg PO DAILY [facility] Last Admin: 05/28/18 09:27 Dose: 81 mg Carvedilol (Coreg) 6.25 mg PO BID [facility] Last Admin: 05/28/18 09:26 Dose: 6.25 mg Clopidogrel Bisulfate (Plavix) 75 mg PO DAILY [facility] Last Admin: 05/28/18 09:26 Dose: 75 mg Enoxaparin Sodium (Lovenox) 30 mg SC DAILY [facility] Last Admin: 05/28/18 09:25 Dose: 30 mg Famotidine (Pepcid) 20 mg PO BID [facility] Last Admin: 05/28/18 09:26 Dose: 20 mg Furosemide (Lasix) 20 mg IVP DAILY [facility] Last Admin: 05/28/18 09:26 Dose: 20 mg Insulin Aspart (Novolog) 0 unit SC [facility] PRN Reason: Protocol Last Admin: 05/28/18 12:37 Dose: 2 u Losartan Potassium (Cozaar) 50 mg PO DAILY [facility] Last Admin: 05/28/18 09:27 Dose: 50 mg Metformin HCl (Glucophage) 500 mg PO DAILY [facility] Last Admin: 05/28/18 09:27 Dose: 500 mg Pregabalin (Lyrica) 75 mg PO DAILY [facility] Last Admin: 05/28/18 09:27 Dose: 75 mg - Labs Labs: 05/26/18 06:38 05/28/18 06:37 PT 14.2 SECONDS (9.7-12.2) H 05/24/18 11:12 INR 1.3 05/24/18 11:12 APTT 31 SECONDS (21-34) 05/21/18 20:10 - Constitutional Appears: Well, No Acute Distress - ENT Exam ENT Exam: Mucous Membranes Moist - Respiratory Exam Respiratory Exam: Decreased Breath Sounds, Rhonchi, NORMAL BREATHING PATTERN - Cardiovascular Exam Cardiovascular Exam: REGULAR RHYTHM, +S1, +S2 - Neurological Exam Neurological Exam: Alert, Awake Assessment and Plan (1) Abdominal pain Status: Acute (2) CHF (congestive heart failure) Status: Acute (3) Diabetes Status: Chronic - Assessment and Plan (Free Text) Assessment: a/p 82yo [place] female with history of CABG, HTN, DM who is admitted with with acute on chronic abdominal pain and exc. CHF ( non ischemic cardiomyopathy) EF - 22% and patient requires life vest Life vest was placed today and instructions given by adam lugo. adam lugo will visit patient home tomorrow for further instructions D/w Dr. Street cleared for discharge home today after life vest placed and schedule Lexican next week Patient scheduled for Lexican on at [facility] D/w Dr. Delgado, cleared for discharge home today and f/u with office in 1 week Discharge instructions given to f/u with Dr. Puentes office and f/u with Dr. Street office out patient for f/u visit RX sent to pt pharmacy
[2018-05-28 16:12] VITALS: BP 118/77; PULSE 77; TEMP 97.5; O2SAT 97
--- NOTE | 2018-05-29 07:09 | CP.PCM.DIS ---
Provider - Provider Date of Admission: 05/21/18 22:33 Attending physician: Fermín Delgado MD Time Spent in preparation of Discharge (in minutes): 45 Diagnosis - Discharge Diagnosis (1) Hypokalemia Status: Acute (2) Abdominal pain Status: Acute (3) CHF (congestive heart failure) Status: Acute Hospital Course - Lab Results Lab Results: Micro Results 05/22/18 06:16 Blood Blood Culture - Final NO GROWTH AFTER 5 DAYS 05/22/18 06:16 Blood Gram Stain - Final TEST NOT PERFORMED 05/22/18 00:30 Urine,Clean Catch Urine Culture - Final No Growth (<1,000 CFU/ML) Most Recent Lab Values WBC 6.5 K/uL (4.8-10.8) 05/26/18 06:38 RBC 3.93 Mil/uL (3.80-5.20) 05/26/18 06:38 Hgb 12.9 g/dL (11.0-16.0) 05/26/18 06:38 Hct 38.0 % (34.0-47.0) 05/26/18 06:38 MCV 96.7 fL (81.0-99.0) 05/26/18 06:38 MCH 32.8 pg (27.0-31.0) H 05/26/18 06:38 MCHC 33.9 g/dL (33.0-37.0) 05/26/18 06:38 RDW 17.3 % (11.5-14.5) H 05/26/18 06:38 Plt Count 158 K/uL (130-400) 05/26/18 06:38 MPV 10.0 fL (7.2-11.7) 05/26/18 06:38 Neut % (Auto) 55.5 % (50.0-75.0) 05/26/18 06:38 Lymph % (Auto) 22.9 % (20.0-40.0) 05/26/18 06:38 Mcdonough % (Auto) 13.7 % (0.0-10.0) H 05/26/18 06:38 Eos % (Auto) 7.1 % (0.0-4.0) H 05/26/18 06:38 Baso % (Auto) 0.8 % (0.0-2.0) 05/26/18 06:38 Neut # (Auto) 3.6 K/uL (1.8-7.0) 05/26/18 06:38 Lymph # (Auto) 1.5 K/uL (1.0-4.3) 05/26/18 06:38 Mcdonough # (Auto) 0.9 K/uL (0.0-0.8) H 05/26/18 06:38 Eos # (Auto) 0.5 K/uL (0.0-0.7) 05/26/18 06:38 Baso # (Auto) 0.1 K/uL (0.0-0.2) 05/26/18 06:38 PT 14.2 SECONDS (9.7-12.2) H 05/24/18 11:12 INR 1.3 05/24/18 11:12 APTT 31 SECONDS (21-34) 05/21/18 20:10 Sodium 136 mmol/L (132-148) 05/28/18 06:37 Potassium 3.9 mmol/L (3.6-5.2) 05/28/18 06:37 Chloride 101 mmol/L (98-107) 05/28/18 06:37 Carbon Dioxide 28 mmol/L (22-30) 05/28/18 06:37 Anion Gap 11 (10-20) 05/28/18 06:37 BUN 15 mg/dL (7-17) 05/28/18 06:37 Creatinine 0.8 mg/dL (0.7-1.2) 05/28/18 06:37 Est GFR ( Amer) > 60 05/28/18 06:37 Est GFR (Non-Af Amer) > 60 05/28/18 06:37 POC Glucose (mg/dL) 220 mg/dL (65-110) H 05/28/18 16:51 Random Glucose 96 mg/dL (65-105) 05/28/18 06:37 Calcium 8.7 mg/dl (8.6-10.4) 05/28/18 06:37 Total Bilirubin 0.9 mg/dL (0.2-1.3) 05/26/18 06:38 Direct Bilirubin 0.9 mg/dL (0.0-0.4) H 05/23/18 08:51 AST 28 U/L (14-36) 05/26/18 06:38 ALT 31 U/L (9-52) 05/26/18 06:38 Alkaline Phosphatase 117 U/L (38-126) 05/26/18 06:38 Troponin I 0.0150 ng/mL (0.00-0.120) 05/21/18 20:10 NT-Pro-B Natriuret Pep 78594 pg/mL (0-900) H 05/21/18 20:10 Total Protein 5.8 g/dL (6.3-8.3) L 05/26/18 06:38 Albumin 3.3 g/dL (3.5-5.0) L 05/26/18 06:38 Globulin 2.6 gm/dL (2.2-3.9) 05/26/18 06:38 Albumin/Globulin Ratio 1.3 (1.0-2.1) 05/26/18 06:38 Lipase 188 U/L (23-300) 05/21/18 20:10 Urine Color Marilia (YELLOW) 05/21/18 21:36 Urine Clarity Hazy (Clear) 05/21/18 21:36 Urine pH 5.0 (5.0-8.0) 05/21/18 21:36 Ur Specific Wheelwright 1.017 (1.003-1.030) 05/21/18 21:36 Urine Protein Negative mg/dL (NEGATIVE) 05/21/18 21:36 Urine Glucose (UA) Normal mg/dL (Normal) 05/21/18 21:36 Urine Ketones Trace mg/dL (NEGATIVE) 05/21/18 21:36 Urine Blood Negative (NEGATIVE) 05/21/18 21:36 Urine Nitrate Negative (NEGATIVE) 05/21/18 21:36 Urine Bilirubin Negative (NEGATIVE) 05/21/18 21:36 Urine Urobilinogen Normal mg/dL (0.2-1.0) 05/21/18 21:36 Ur Leukocyte Esterase 3+ Emeterio/uL (Negative) H 05/21/18 21:36 Urine WBC (Auto) 43 /hpf (0-5) H 05/21/18 21:36 Urine RBC (Auto) 2 /hpf (0-3) 05/21/18 21:36 Ur Squamous Epith Cells 4 /hpf (0-5) 05/21/18 21:36 Urine Bacteria Rare (<OCC) 05/21/18 21:36 Influenza Typ A,B (EIA) Negative for flu a/b (NEGATIVE) 05/22/18 18:02 - Hospital Course Hospital Course: Pt is seen and examined, is stable for discharge today, advised to follow up in 1 week out patient Discharge Exam - Head Exam Head Exam: ATRAUMATIC, NORMAL INSPECTION, NORMOCEPHALIC Discharge Plan - Discharge Medications Prescriptions: Amoxicillin/Clavulanate [Augmentin 500 MG-125 MG] 1 tab PO Q12 #10 tab Carvedilol [Coreg] 6.25 mg PO BID #60 tab Losartan [Cozaar] 50 mg PO DAILY #30 tab Aspirin [Ecotrin] 81 mg PO DAILY #30 tabec Furosemide [Lasix] 40 mg PO DAILY #30 tablet Famotidine [Pepcid] 20 mg PO BID #30 tab - Follow Up Plan Condition: FAIR Disposition: HOME/ ROUTINE Instructions: Heart Healthy Diet, Urinary Tract Infection, Adult (DC), Heart Failure, Child (DC), Amoxicillin and Clavulanate, Aspirin, Carvedilol, Famotidine, Furosemide, Losartan Additional Instructions: Please follow up with Dr. Delgado office in 1 week- call and make appointment Please follow up with Dr. Puentes -GI- office in 1-2 weeks call and make appointment Please follow up with Jad office in 2 weeks Please come to [facility] on at 8 am for Lexican Please continue medication as per med. rec. Please do not eat anything after midnight on except medication Please pickle cutter medication from [facility] Referrals: Brett Street MD [Staff Provider] - Lee Puentes MD [Staff Provider] - Fermín Delgado MD [Staff Provider] -
== END 2018-05-28 19:16 | disposition home or self-care (01) | DRG 292 ==
LOC: C.ER 19:07 → C.9E 22:33 → C.6T 23:44
PROVIDERS: ADMIT Internal Medicine; ATTEND Internal Medicine
DX: I11.0 Hypertensive heart disease with heart failure (principal); D68.9 Coagulation defect, unspecified; N39.0 Urinary tract infection, site not specified; E78.5 Hyperlipidemia, unspecified; E86.0 Dehydration; E87.6 Hypokalemia; G89.29 Other chronic pain; E11.9 Type 2 diabetes mellitus without complications; B34.9 Viral infection, unspecified; I25.10 Atherosclerotic heart disease of native coronary artery without angina pectoris; I42.9 Cardiomyopathy, unspecified; I50.22 Chronic systolic (congestive) heart failure; K58.9 Irritable bowel syndrome, unspecified; Z91.19 Patient's noncompliance with other medical treatment and regimen; Z95.1 Presence of aortocoronary bypass graft; K83.8 Other specified diseases of biliary tract; H10.9 Unspecified conjunctivitis

== ENCOUNTER 2018-06-29 09:42 | Observation (INO) | payer MEDICARE, SELFPAY ==
[2018-06-29 10:01] VITALS: BMI 17.3
[2018-06-29 10:35] LABS: BASO # 0.1 K/uL (0.0-0.2); BASO % 0.8 % (0.0-2.0); EOS % 0.6 % (0.0-4.0); LYMPH # 1.2 K/uL (1.0-4.3); LYMPH % 16.6 % (20.0-40.0); MEAN CELL VOLUME 97.6 fL (81.0-99.0); MEAN CORPUSCULAR HEMOGLOBIN 32.7 pg (27.0-31.0); MEAN CORPUSCULAR HGB CONC 33.5 g/dL (33.0-37.0); MEAN PLATELET VOLUME 10.9 fL (7.2-11.7); MONO # 0.7 K/uL (0.0-0.8); MONO % 10.3 % (0.0-10.0); NEUT % 71.7 % (50.0-75.0); RBC 3.35 Mil/uL (3.80-5.20); RED CELL DISTRIBUTION WIDTH 15.6 % (11.5-14.5)
[2018-06-29 10:38] LABS: HEMOGLOBIN 10.9 g/dL (11.0-16.0)
[2018-06-29 10:55] LABS: SQUAMOUS EPITHIAL 4 /hpf (0-5); URINE BACTERIA RARE (<OCC); URINE BILIRUBIN NEGATIVE (NEGATIVE); URINE BLOOD NEGATIVE (NEGATIVE); URINE CLARITY Hazy (Clear); URINE COLOR Yellow (YELLOW); URINE GLUCOSE (UA) NORMAL (Normal); URINE LEUKOCYTE ESTERASE 1+ Leu/uL (Negative); URINE PROTEIN 2+ mg/dL (NEGATIVE); URINE UROBILINOGEN NORMAL mg/dL (0.2-1.0)
[2018-06-29 10:57] LABS: ALB/GLOB RATIO 1.3 (1.0-2.1); ALT/SGPT 31 U/L (9-52); AST/SGOT 33 U/L (14-36); BLOOD UREA NITROGEN 24 mg/dL (7-17); CALCIUM 9.5 mg/dl (8.6-10.4); GFR AFRICAN-AMERICAN > 60; GFR NON-AFRICAN AMERICAN 53; LIPASE 143 U/L (23-300)
[2018-06-29 11:01] LABS: INR 2.1; PROTHROMBIN TIME 22.9 SECONDS (9.7-12.2)
[2018-06-29 11:07] LABS: B-TYPE NATRIURETIC PEPTIDE 27800 pg/mL (0-900)
--- NOTE | 2018-06-29 11:14 | C.PDOC ---
History Of Present Illness 82 y/o female presents to the ER complaining of abdominal pain which has been present for the past 3 days. Patient states that she has associated nausea and vomiting. Patient is also complaining of bilateral lower extremity swelling. Denies having CP (+) mild sob. Patient notes that she has has hx of open heart surgery and she is wearing lifevest. Time Seen by Provider: 06/29/18 09:51 Chief Complaint (Nursing): Abdominal Pain History Per: Patient History/Exam Limitations: no limitations Onset/Duration Of Symptoms: Days Current Symptoms Are (Timing): Still Present Severity: Moderate Past Medical History Reviewed: Historical Data, Nursing Documentation, Vital Signs Vital Signs: Last Vital Signs Temp 97.3 F L 06/29/18 14:13 Pulse 64 06/29/18 14:13 Resp 18 06/29/18 14:13 BP 121/81 06/29/18 14:13 Pulse Ox 100 06/29/18 14:13 - Medical History PMH: Diabetes, HTN, Hypercholesterolemia Denies: Chronic Kidney Disease Surgical History: CABG (2011) Family History: States: No Known Family Hx - Social History Hx Alcohol Use: No Hx Substance Use: No - Immunization History Hx Tetanus Toxoid Vaccination: No Hx Influenza Vaccination: Yes Hx Pneumococcal Vaccination: Yes Review Of Systems Except As Marked, All Systems Reviewed And Found Negative. Constitutional: Negative for: Fever, Chills Gastrointestinal: Positive for: Nausea, Vomiting, Abdominal Pain Genitourinary: Negative for: Dysuria, Hematuria Physical Exam - Physical Exam Appears: Non-toxic, No Acute Distress Skin: Normal Color, Warm, Dry Head: Atraumatic, Normacephalic Eye(s): bilateral: Normal Inspection Nose: Normal Oral Mucosa: Moist Neck: Supple Chest: Other (lifevest intact) Cardiovascular: Rhythm Regular Respiratory: Normal Breath Sounds, No Rales, No Rhonchi, No Wheezing Gastrointestinal/Abdominal: Soft, Tenderness (diffuse tenderness), No Guarding, No Rebound, Other (well-healed surgical scar to abdomen) Extremity: Normal ROM, Other (2+ bilateral pitting edema) Neurological/Psych: Oriented x3, Normal Speech ED Course And Treatment - Laboratory Results Result Diagrams: 06/29/18 10:25 06/29/18 10:25 ECG: Interpreted By Me, Viewed By Me ECG Rhythm: Sinus Rhythm Interpretation Of ECG: NSR with normal intervals, poor R wave progression, and diffuse T wave flattening Rate From EC O2 Sat by Pulse Oximetry: 98 (RA) Pulse Ox Interpretation: Normal Medical Decision Making Medical Decision Making: Assessment: Abdominal Pain Plan: --Labs --UA --CXR --CT- Abd & Pelv. --Pepcid IV --Zofran IV Disposition Discussed With Dr.: Myrna Drummond Doctor Will See Patient In The: Hospital Counseled Patient/Family Regarding: Studies Performed, Diagnosis - Disposition Disposition: HOSPITALIZED Disposition Time: 14:40 Condition: FAIR Forms: [employer] (Danish) - Clinical Impression Clinical Impression: Abdominal pain, CHF (congestive heart failure) - Scribe Statement The provider has reviewed the documentation as recorded by the Kalyan Ball Provider Attestation: All medical record entries made by the Nancyibeduin were at my direction and personally dictated by me. I have reviewed the chart and agree that the record accurately reflects my personal performance of the history, physical exam, medical decision making, and the department course for this patient. I have also personally directed, reviewed, and agree with the discharge instructions and disposition.
--- NOTE | 2018-06-29 12:56 | RAD ---
Date of service: 06/29/2018 PROCEDURE: CHEST RADIOGRAPH, 1 VIEW HISTORY: SOB COMPARISON: None available. FINDINGS: LUNGS: Clear. PLEURA: No pneumothorax or pleural fluid seen. CARDIOVASCULAR: Cardiomegaly. No evidence of acute, significant cardiovascular disease. OSSEOUS STRUCTURES: No significant abnormalities. VISUALIZED UPPER ABDOMEN: Normal. OTHER FINDINGS: None. IMPRESSION: No active disease.
[2018-06-29] MEDS ORDERED: Iodixanol 320 MG/ML 100 ML BOTTLE IV ONE (13:01)
--- NOTE | 2018-06-29 14:26 | CT ---
Date of service: 06/29/2018 PROCEDURE: CT Abdomen and Pelvis with contrast HISTORY: vomiting COMPARISON: Comparison is made with the previous study dated 05/21/2018 TECHNIQUE: Contrast dose: 100 mL Visipaque 320. Axial and reformatted coronal and sagittal CT images of the abdomen and pelvis were obtained after IV contrast administration. Radiation dose: Total exam DLP = 204.11 mGy-cm. This CT exam was performed using one or more of the following dose reduction techniques: Automated exposure control, adjustment of the mA and/or kV according to patient size, and/or use of iterative reconstruction technique. FINDINGS: LOWER THORAX: Cardiomegaly is again noted. Small to moderate bilateral pleural effusions are noted. LIVER: No evidence of mass lesion or acute pathology in the liver. Mild hepatomegaly is again noted. GALLBLADDER AND BILE DUCTS: No evidence of acute cholecystitis. PANCREAS: Unremarkable. No gross lesion or ductal dilatation. SPLEEN: Unremarkable. ADRENALS: Unremarkable. No mass. KIDNEYS AND URETERS: Unremarkable. No hydronephrosis. No solid mass. VASCULATURE: Unremarkable. No aortic aneurysm. BOWEL: Unremarkable. No obstruction. No gross mural thickening. APPENDIX: Normal appendix. PERITONEUM: Unremarkable. No free fluid. No free air. LYMPH NODES: Unremarkable. No enlarged lymph nodes. BLADDER: Urinary bladder wall thickening. REPRODUCTIVE: The uterus and adnexa are not visualized. BONES: No acute fracture. OTHER FINDINGS: Mild soft tissue edema. IMPRESSION: No CT evidence of acute cholecystitis pancreatitis or appendicitis. No interval changes.
--- NOTE | 2018-06-29 15:09 | CP.PCM.HP ---
History of Present Illness - History of Present Illness History of Present Illness: Resident History & Physical for Hospitalist Service Patient is a 82 year old female with past medical history of hypertension, systolic CHF, hypercholesterolemia, type 2 diabetes, hypothyroidism presenting with chief complaint of abdominal pain that began 2 days prior. She states this abdominal pain is mostly in her left lower quadrant, and typically occurs about an hour after eating. She also admits to early satiety, nausea and two episodes of nonbloody, nonbilious vomiting, and constipation. Of note she was admitted one month prior and had an MRCP at that time which showed dilated 1.0 cm cbd with tapering. She was unable to followup for outpatient endoscopy. She denies fevers, chills, headache, dizziness, chest pain, shortness of breath, dysuria. Past medical history: hypertension, CHF, hypercholesterolemia, T2DM, hypothyroidism Past surgical: CABG 2011 Social: Denies alcohol, tobacco use, recreational drug use. Allergies: NKDA Home meds: Losartan 50 mg PO daily, Lasix 40 mg PO QD, Carvedilol 12.5 mg PO BID , Aspirin 81 mg PO daily, metformin 500 mg PO BID, Pepcid 20 mg PO BID Family history: Mother (T2DM) PMD: Dr. Jessica Noriega A 12 point ROS was reviewed and negative except as mentioned in HPI. Present on Admission - Present on Admission Any Indicators Present on Admission: No Review of Systems - Constitutional Constitutional: absent: Chills, Fever, Headache - EENT Eyes: absent: Change in Vision Nose/Mouth/Throat: absent: Dysphagia, Sore Throat - Cardiovascular Cardiovascular: absent: Chest Pain, Dyspnea - Respiratory Respiratory: absent: Cough, Hemoptysis - Gastrointestinal Gastrointestinal: Abdominal Pain, Change in Bowel Habits, Constipation, Early Satiety, Nausea, Vomiting. absent: Dysphagia, Fecal Incontinence, Hematemesis, Hematochezia - Genitourinary Genitourinary: absent: Difficulty Urinating, Dysuria - Neurological Neurological: absent: Confusion, Numbness Past Patient History - Infectious Disease Hx of Infectious Diseases: None - Past Medical History & Family History Past Medical History?: Yes - Past Social History Smoking Status: Never Smoked Alcohol: None Drugs: Denies - CARDIAC Hx Hypercholesterolemia: Yes Hx Hypertension: Yes - PULMONARY Hx Respiratory Disorders: No - NEUROLOGICAL Hx Neurological Disorder: No - HEENT Hx HEENT Problems: Yes Other/Comment: family states pt has 'sick look in eyes' - RENAL Hx Chronic Kidney Disease: No - ENDOCRINE/METABOLIC Hx Endocrine Disorders: Yes Hx Diabetes Mellitus Type 2: Yes - HEMATOLOGICAL/ONCOLOGICAL Hx Blood Disorders: No - INTEGUMENTARY Hx Dermatological Problems: No - MUSCULOSKELETAL/RHEUMATOLOGICAL Hx Musculoskeletal Disorders: No Hx Falls: No - GASTROINTESTINAL Hx Gastrointestinal Disorders: No - GENITOURINARY/GYNECOLOGICAL Hx Genitourinary Disorders: No - PSYCHIATRIC Hx Substance Use: No - SURGICAL HISTORY Hx Coronary Artery Bypass Graft: Yes (2011) - ANESTHESIA Hx Anesthesia: Yes Hx Anesthesia Reactions: No Hx Malignant Hyperthermia: No Meds Allergies/Adverse Reactions: Allergies Allergy/AdvReac Type Severity Reaction Status Date / Time No Known Allergies Allergy Verified 06/29/18 09:59 Physical Exam - Constitutional Appears: Well, No Acute Distress - Head Exam Head Exam: ATRAUMATIC, NORMOCEPHALIC - Eye Exam Eye Exam: EOMI, Normal appearance, PERRL - ENT Exam ENT Exam: Mucous Membranes Dry, Normal Exam - Neck Exam Neck exam: Positive for: Full Rom. Negative for: Lymphadenopathy, Tenderness - Respiratory Exam Respiratory Exam: NORMAL BREATHING PATTERN. absent: Respiratory Distress Additional comments: Bibasilar crackles - Cardiovascular Exam Cardiovascular Exam: REGULAR RHYTHM, +S1, +S2 Additional comments: Lifevest - GI/Abdominal Exam GI & Abdominal Exam: Hypoactive Bowel Sounds, Soft, Tenderness. absent: Distended, Firm, Guarding, Mass, Rebound, Rigid Additional comments: Ecchymosis in RLQ 2/2 heparin SC - Extremities Exam Extremities exam: Positive for: pedal edema. Negative for: calf tenderness Additional comments: +2 pitting edema - Back Exam Back exam: NORMAL INSPECTION - Neurological Exam Neurological exam: Alert, Oriented x3 - Psychiatric Exam Psychiatric exam: Normal Affect, Normal Mood - Skin Skin Exam: Dry, Intact, Warm Results - Vital Signs Recent Vital Signs: Last Vital Signs Temp 97.3 F L 06/29/18 14:13 Pulse 64 06/29/18 14:13 Resp 18 06/29/18 14:13 BP 121/81 06/29/18 14:13 Pulse Ox 98 06/29/18 14:40 - Labs Result Diagrams: 06/29/18 10:25 06/29/18 10:25 Labs: Laboratory Results - last 24 hr 06/29/18 06/29/18 06/29/18 10:25 10:25 10:25 WBC 7.0 RBC 3.35 L Hgb 10.9 L D Hct 32.7 L MCV 97.6 MCH 32.7 H MCHC 33.5 RDW 15.6 H Plt Count 131 MPV 10.9 Neut % (Auto) 71.7 Lymph % (Auto) 16.6 L [place] % (Auto) 10.3 H Eos % (Auto) 0.6 Baso % (Auto) 0.8 Neut # (Auto) 5.0 Lymph # (Auto) 1.2 [place] # (Auto) 0.7 Eos # (Auto) 0.0 Baso # (Auto) 0.1 PT 22.9 H INR 2.1 APTT 32 Sodium 138 Potassium 4.4 Chloride 102 Carbon Dioxide 17 L Anion Gap 24 H BUN 24 H Creatinine 1.0 Est GFR ( Amer) > 60 Est GFR (Non-Af Amer) 53 Random Glucose 217 H Calcium 9.5 Total Bilirubin 1.1 AST 33 ALT 31 Alkaline Phosphatase 143 H D Troponin I < 0.0120 NT-Pro-B Natriuret Pep 70280 H Total Protein 7.2 Albumin 4.0 Globulin 3.2 Albumin/Globulin Ratio 1.3 Lipase 143 Urine Color Urine Clarity Urine pH Ur Specific [place] Urine Protein Urine Glucose (UA) Urine Ketones Urine Blood Urine Nitrate Urine Bilirubin Urine Urobilinogen Ur Leukocyte Esterase Urine WBC (Auto) Urine RBC (Auto) Ur Squamous Epith Cells Urine Bacteria Hyaline Casts 06/29/18 10:45 WBC RBC Hgb Hct MCV MCH MCHC RDW Plt Count MPV Neut % (Auto) Lymph % (Auto) [place] % (Auto) Eos % (Auto) Baso % (Auto) Neut # (Auto) Lymph # (Auto) [place] # (Auto) Eos # (Auto) Baso # (Auto) PT INR APTT Sodium Potassium Chloride Carbon Dioxide Anion Gap BUN Creatinine Est GFR ( Amer) Est GFR (Non-Af Amer) Random Glucose Calcium Total Bilirubin AST ALT Alkaline Phosphatase Troponin I NT-Pro-B Natriuret Pep Total Protein Albumin Globulin Albumin/Globulin Ratio Lipase Urine Color Yellow Urine Clarity Hazy Urine pH 5.0 Ur Specific [place] 1.013 Urine Protein 2+ H Urine Glucose (UA) Normal Urine Ketones Negative Urine Blood Negative Urine Nitrate Negative Urine Bilirubin Negative Urine Urobilinogen Normal Ur Leukocyte Esterase 1+ H Urine WBC (Auto) 22 H Urine RBC (Auto) 2 Ur Squamous Epith Cells 4 Urine Bacteria Rare Hyaline Casts 11-20 H Assessment & Plan - Assessment and Plan (Free Text) Assessment: Patient is a 82 year old female with past medical history of hypertension, combined systolic and diastolic CHF, hypercholesterolemia, type 2 diabetes, hypothyroidism presenting with chief complaint of abdominal pain associated with nausea, vomiting, constipation, early satiety. Plan: Abdominal pain - Possibly due to constipation vs. PUD - Abd/pelvis CT with IV contrast shows no evidence of acute cholecystitis, unremarkable bowel, kidney and ureters, spleen, pancreas - Lipase 143 - Lactulose 10 gm PO daily - GI consulted. Appreciate recs. CHF (systolic) - Abd/pelvis CT with IV contrast shows mild to moderate bilateral pleural effusions - ECHO from shows LVEF 22%, moderate MR, mild TR - Pro-BNP 14530 - Followup venous duplex scan for lower extremities - Continue home Lasix 40 mg PO daily Hypertension - Continue home carvedilol 12.5 mg PO BID - Continue home losartan 50 mg PO daily T2DM - Followup Hgba1c - Home metformin 500 mg PO BID held due to recent IV contrast Hypothyrodism - Followup TSH - Continue home Synthroid 25 mcg PO daily PPX - Heparin 5000 units SC Q8 - Pepcid 20 mg PO BID Maria Dolores Lorenzana PGY-1 - Date & Time Date: 06/29/18 Time: 17:38
[2018-06-30] MEDS: Levothyroxine 25 MCG TAB PO SCH (05:51)
[2018-06-30 06:32] LABS: HEMOGLOBIN 11.4 g/dL (11.0-16.0); LYMPH % 19.8 % (20.0-40.0); MEAN CELL VOLUME 98.1 fL (81.0-99.0); MEAN CORPUSCULAR HEMOGLOBIN 32.8 pg (27.0-31.0); MEAN CORPUSCULAR HGB CONC 33.4 g/dL (33.0-37.0); RBC 3.47 Mil/uL (3.80-5.20); RED CELL DISTRIBUTION WIDTH 15.9 % (11.5-14.5); WHITE BLOOD COUNT 7.2 K/uL (4.8-10.8)
[2018-06-30 06:33] LABS: BASO # 0.1 K/uL (0.0-0.2); BASO % 0.8 % (0.0-2.0); EOS # 0.1 K/uL (0.0-0.7); EOS % 0.9 % (0.0-4.0); LYMPH # 1.4 K/uL (1.0-4.3); MONO # 0.9 K/uL (0.0-0.8); MONO % 12.5 % (0.0-10.0); NEUT # 4.8 K/uL (1.8-7.0); NRBC % 0.1 % (0.0-2.0)
[2018-06-30 06:44] LABS: ALB/GLOB RATIO 1.4 (1.0-2.1); CALCIUM 9.8 mg/dl (8.6-10.4)
--- NOTE | 2018-06-30 07:46 | CP.PCM.PN ---
Subjective - Date & Time of Evaluation Date of Evaluation: 06/30/18 Time of Evaluation: 07:45 - Subjective Subjective: Resident Progress Note for Hospitalist Service Patient examined at bedside. Information was obtained with the help of and nurse. Patient states she is still having some abdominal pain. She did have one bowel movement today. Denies other complaints at this time. Patient is eating and drinking well. Denies chest pain, shortness of breath, dysuria. Objective - Vital Signs/Intake and Output Vital Signs (last 24 hours): Temp Pulse Resp BP Pulse Ox 97.4 F L 59 L 20 124/70 100 06/30/18 00:00 06/30/18 00:00 06/30/18 00:00 06/30/18 00:00 06/30/18 00:00 - Medications Medications: Current Medications Acetaminophen (Tylenol 325mg Tab) 650 mg PO Q6H PRN PRN Reason: Fever >100.4 F and pain Aspirin (Ecotrin) 81 mg PO DAILY [facility] Carvedilol (Coreg) 12.5 mg PO BID [facility] Last Admin: 06/29/18 18:14 Dose: 12.5 mg Famotidine (Pepcid) 20 mg PO BID [facility] Last Admin: 06/29/18 18:14 Dose: 20 mg Furosemide (Lasix) 40 mg PO DAILY [facility] Heparin Sodium (Porcine) (Heparin) 5,000 units SC Q8 [facility] Last Admin: 06/30/18 05:51 Dose: 5,000 units Lactulose (Enulose) 10 gm PO BID [facility] Last Admin: 06/29/18 18:14 Dose: 10 gm Levothyroxine Sodium (Synthroid) 25 mcg PO DAILY@0630 [facility] Last Admin: 06/30/18 05:51 Dose: 25 mcg Losartan Potassium (Cozaar) 50 mg PO DAILY [facility] Ondansetron HCl (Zofran Inj) 4 mg IVP Q6H PRN PRN Reason: Nausea/Vomiting - Labs Labs: 06/30/18 06:20 06/30/18 06:20 PT 22.9 SECONDS (9.7-12.2) H 06/29/18 10:25 INR 2.1 06/29/18 10:25 APTT 32 SECONDS (21-34) 06/29/18 10:25 - Additional Findings Additional findings: - Constitutional Appears: Well, No Acute Distress - Head Exam Head Exam: ATRAUMATIC, NORMOCEPHALIC - Eye Exam Eye Exam: EOMI, Normal appearance - ENT Exam ENT Exam: Mucous Membranes Dry, Normal Exam - Neck Exam Neck exam: Positive for: Full Rom. Negative for: Lymphadenopathy, Tenderness - Respiratory Exam Respiratory Exam: NORMAL BREATHING PATTERN. absent: Respiratory Distress Additional comments: Bibasilar crackles - Cardiovascular Exam Cardiovascular Exam: REGULAR RHYTHM, +S1, +S2 Additional comments: Lifevest - GI/Abdominal Exam GI & Abdominal Exam: Hypoactive Bowel Sounds, Soft, Tenderness. absent: Distended, Firm, Guarding, Mass, Rebound, Rigid Additional comments: Ecchymosis in RLQ 2/2 heparin SC - Extremities Exam Extremities exam: Positive for: pedal edema. Negative for: calf tenderness Additional comments: +2 pitting edema - Back Exam Back exam: NORMAL INSPECTION - Neurological Exam Neurological exam: Alert, Oriented x3 - Psychiatric Exam Psychiatric exam: Normal Affect, Normal Mood - Skin Skin Exam: Dry, Intact, Warm Assessment and Plan - Assessment and Plan (Free Text) Plan: Abdominal pain - Possibly due to constipation vs. PUD - Abd/pelvis CT with IV contrast shows no evidence of acute cholecystitis, unremarkable bowel, kidney and ureters, spleen, pancreas - Lipase 143 - Lactulose 10 gm PO daily. Dose of Dulcolax given today. - GI consulted. Recs appreciated. CHF (systolic) - Abd/pelvis CT with IV contrast shows mild to moderate bilateral pleural effusions - ECHO from shows LVEF 22%, moderate MR, mild TR - Pro-BNP 02154 - Venous duplex scan for bilat lower extremities negative for DVT - Continue home Lasix 40 mg PO daily Hypertension - Continue home carvedilol 12.5 mg PO BID - Continue home losartan 50 mg PO daily T2DM - Hgba1c 7.7 - Home metformin 500 mg PO BID held due to recent IV contrast Hypothyrodism - TSH 13.20 - Continue home Synthroid 25 mcg PO daily PPX - Heparin 5000 units SC Q8 - Pepcid 20 mg PO BID Maria Dolores Lorenzana PGY-1
--- NOTE | 2018-06-30 09:41 | CP.PCM.CON ---
<Alfonzo Crawley - Last Filed: 06/30/18 09:58> History of Present Illness - History of Present Illness History of Present Illness: Mrs. He is a 82yo Filipino female with history of CABG, HTN, DM who presents with acute on chronic nausea. The following history limited as patient was recently administered diphenhydramine resulting in some slurred words and confusion; she apparently had difficulty sleeping last night as was wandering the halls. However, patient present with worsening of chronic nausea with dry heaving, denying any emesis. BMs are reportedly normal and denies any abdominal pain at this time. During our encounter this AM, she states that she is feeling OK and would like to return home. Unable to obatain full ROS due to diphenhydramine administration MHx: hypertension, CHF, hypercholesterolemia, T2DM, hypothyroidism SurgHx: CABG 2011 Meds: Losartan 50 mg PO daily, Lasix 40 mg PO QD, Carvedilol 12.5 mg PO BID, Aspirin 81 mg PO daily, metformin 500 mg PO BID, Pepcid 20 mg PO BID FHx: Mother (T2DM) SocHx: Denies alcohol, tobacco use, recreational drug use. All: NKDA Past Patient History - Infectious Disease Hx of Infectious Diseases: None - Past Medical History & Family History Past Medical History?: Yes - Past Social History Smoking Status: Never Smoked Alcohol: None Drugs: Denies - CARDIAC Hx Hypercholesterolemia: Yes Hx Hypertension: Yes - PULMONARY Hx Respiratory Disorders: No - NEUROLOGICAL Hx Neurological Disorder: No - HEENT Hx HEENT Problems: Yes Other/Comment: family states pt has 'sick look in eyes' - RENAL Hx Chronic Kidney Disease: No - ENDOCRINE/METABOLIC Hx Endocrine Disorders: Yes Hx Diabetes Mellitus Type 2: Yes - HEMATOLOGICAL/ONCOLOGICAL Hx Blood Disorders: No - INTEGUMENTARY Hx Dermatological Problems: No - MUSCULOSKELETAL/RHEUMATOLOGICAL Hx Musculoskeletal Disorders: No Hx Falls: No - GASTROINTESTINAL Hx Gastrointestinal Disorders: No - GENITOURINARY/GYNECOLOGICAL Hx Genitourinary Disorders: No - PSYCHIATRIC Hx Substance Use: No - SURGICAL HISTORY Hx Coronary Artery Bypass Graft: Yes (2011) - ANESTHESIA Hx Anesthesia: Yes Hx Anesthesia Reactions: No Hx Malignant Hyperthermia: No Meds Allergies/Adverse Reactions: Allergies Allergy/AdvReac Type Severity Reaction Status Date / Time No Known Allergies Allergy Verified 06/29/18 09:59 - Medications Medications: Current Medications Acetaminophen (Tylenol 325mg Tab) 650 mg PO Q6H PRN PRN Reason: Fever >100.4 F and pain Aspirin (Ecotrin) 81 mg PO DAILY [facility] Carvedilol (Coreg) 12.5 mg PO BID [facility] Last Admin: 06/29/18 18:14 Dose: 12.5 mg Famotidine (Pepcid) 20 mg PO DAILY [facility] Furosemide (Lasix) 40 mg PO DAILY [facility] Heparin Sodium (Porcine) (Heparin) 5,000 units SC Q8 [facility] Last Admin: 06/30/18 05:51 Dose: 5,000 units Lactulose (Enulose) 10 gm PO BID [facility] Last Admin: 06/29/18 18:14 Dose: 10 gm Levothyroxine Sodium (Synthroid) 25 mcg PO DAILY@0630 [facility] Last Admin: 06/30/18 05:51 Dose: 25 mcg Losartan Potassium (Cozaar) 50 mg PO DAILY [facility] Ondansetron HCl (Zofran Inj) 4 mg IVP Q6H PRN PRN Reason: Nausea/Vomiting Physical Exam - Constitutional Appears: No Acute Distress, Confused - Head Exam Head Exam: ATRAUMATIC, NORMAL INSPECTION - Eye Exam Eye Exam: EOMI. absent: Conjunctival injection, Scleral icterus - ENT Exam ENT Exam: Mucous Membranes Dry. absent: Mucous Membranes Moist, Normal External Ear Exam Additional comments: twitching of R side of face (chronic per patient) - Respiratory Exam Respiratory Exam: Clear to Auscultation Bilateral, NORMAL BREATHING PATTERN. absent: Wheezes, Respiratory Distress - Cardiovascular Exam Cardiovascular Exam: REGULAR RHYTHM, RRR. absent: Bradycardia, Tachycardia - GI/Abdominal Exam GI & Abdominal Exam: Normal Bowel Sounds, Soft. absent: Bruit, Diminished Bowel Sounds, Distended, Firm, Guarding, Hyperactive Bowel Sounds, Organomegaly , Pulsatile Mass, Rebound, Rigid, Tenderness - Rectal Exam Rectal Exam: Deferred - Extremities Exam Extremities exam: Positive for: normal inspection, pedal edema (1+ bilateral LE) - Neurological Exam Neurological exam: Alert Additional comments: twicthing R side of face, motor grossly intact in UEs - Psychiatric Exam Psychiatric exam: Anxious, Normal Affect - Skin Skin Exam: Dry, Warm Results - Vital Signs Recent Vital Signs: Last Vital Signs Temp 98.1 F 06/30/18 08:00 Pulse 62 06/30/18 08:00 Resp 18 06/30/18 08:00 BP 126/75 06/30/18 08:00 Pulse Ox 98 06/30/18 08:00 - Labs Result Diagrams: 06/30/18 06:20 06/30/18 06:20 Labs: Laboratory Results - last 24 hr 06/29/18 06/29/18 06/29/18 10:25 10:25 10:25 WBC 7.0 RBC 3.35 L Hgb 10.9 L D Hct 32.7 L MCV 97.6 MCH 32.7 H MCHC 33.5 RDW 15.6 H Plt Count 131 MPV 10.9 Neut % (Auto) 71.7 Lymph % (Auto) 16.6 L [place] % (Auto) 10.3 H Eos % (Auto) 0.6 Baso % (Auto) 0.8 Neut # (Auto) 5.0 Lymph # (Auto) 1.2 [place] # (Auto) 0.7 Eos # (Auto) 0.0 Baso # (Auto) 0.1 PT 22.9 H INR 2.1 APTT 32 Sodium 138 Potassium 4.4 Chloride 102 Carbon Dioxide 17 L Anion Gap 24 H BUN 24 H Creatinine 1.0 Est GFR ( Amer) > 60 Est GFR (Non-Af Amer) 53 POC Glucose (mg/dL) Random Glucose 217 H Hemoglobin A1c Calcium 9.5 Phosphorus Magnesium Total Bilirubin 1.1 AST 33 ALT 31 Alkaline Phosphatase 143 H D Troponin I < 0.0120 NT-Pro-B Natriuret Pep 68500 H Total Protein 7.2 Albumin 4.0 Globulin 3.2 Albumin/Globulin Ratio 1.3 Lipase 143 TSH 3rd Generation Urine Color Urine Clarity Urine pH Ur Specific [place] Urine Protein Urine Glucose (UA) Urine Ketones Urine Blood Urine Nitrate Urine Bilirubin Urine Urobilinogen Ur Leukocyte Esterase Urine WBC (Auto) Urine RBC (Auto) Ur Squamous Epith Cells Urine Bacteria Hyaline Casts 06/29/18 06/29/18 06/30/18 10:45 21:02 06:20 WBC 7.2 RBC 3.47 L Hgb 11.4 Hct 34.0 MCV 98.1 MCH 32.8 H MCHC 33.4 RDW 15.9 H Plt Count 128 L MPV 11.0 Neut % (Auto) 66.0 Lymph % (Auto) 19.8 L [place] % (Auto) 12.5 H Eos % (Auto) 0.9 Baso % (Auto) 0.8 Neut # (Auto) 4.8 Lymph # (Auto) 1.4 [place] # (Auto) 0.9 H Eos # (Auto) 0.1 Baso # (Auto) 0.1 PT INR APTT Sodium Potassium Chloride Carbon Dioxide Anion Gap BUN Creatinine Est GFR ( Amer) Est GFR (Non-Af Amer) POC Glucose (mg/dL) 255 H Random Glucose Hemoglobin A1c Calcium Phosphorus Magnesium Total Bilirubin AST ALT Alkaline Phosphatase Troponin I NT-Pro-B Natriuret Pep Total Protein Albumin Globulin Albumin/Globulin Ratio Lipase TSH 3rd Generation Urine Color Yellow Urine Clarity Hazy Urine pH 5.0 Ur Specific [place] 1.013 Urine Protein 2+ H Urine Glucose (UA) Normal Urine Ketones Negative Urine Blood Negative Urine Nitrate Negative Urine Bilirubin Negative Urine Urobilinogen Normal Ur Leukocyte Esterase 1+ H Urine WBC (Auto) 22 H Urine RBC (Auto) 2 Ur Squamous Epith Cells 4 Urine Bacteria Rare Hyaline Casts 11-20 H 06/30/18 06/30/18 06/30/18 06:20 06:20 06:30 WBC RBC Hgb Hct MCV MCH MCHC RDW Plt Count MPV Neut % (Auto) Lymph % (Auto) [place] % (Auto) Eos % (Auto) Baso % (Auto) Neut # (Auto) Lymph # (Auto) [place] # (Auto) Eos # (Auto) Baso # (Auto) PT INR APTT Sodium 137 Potassium 4.2 Chloride 101 Carbon Dioxide 20 L Anion Gap 20 BUN 25 H Creatinine 1.3 H Est GFR ( Amer) 47 Est GFR (Non-Af Amer) 39 POC Glucose (mg/dL) 165 H Random Glucose 188 H Hemoglobin A1c 7.1 H Calcium 9.8 Phosphorus 4.4 Magnesium 1.9 Total Bilirubin 1.1 AST 26 ALT 29 Alkaline Phosphatase 116 Troponin I NT-Pro-B Natriuret Pep Total Protein 6.9 Albumin 4.0 Globulin 2.9 Albumin/Globulin Ratio 1.4 Lipase TSH 3rd Generation 13.20 H Urine Color Urine Clarity Urine pH Ur Specific [place] Urine Protein Urine Glucose (UA) Urine Ketones Urine Blood Urine Nitrate Urine Bilirubin Urine Urobilinogen Ur Leukocyte Esterase Urine WBC (Auto) Urine RBC (Auto) Ur Squamous Epith Cells Urine Bacteria Hyaline Casts Assessment & Plan - Assessment and Plan (Free Text) Assessment: 82 yo Filipino Female with CAD, CHF, h/o abd pain + N/V and dilated CBD presenting with nausea and dry heaving. # Acute on Chronic Nausea: Pt with chronic symptoms of unclear etiology. Plan was to undergo OP EUS to further evaluate CBD dilation of 1 cm that was seen on MRCP during last admission. Furthermore, had previous plans to perform EGD/ CSPY as outpatient to workup intermittent abd pain + N/V. Pt is symptomatically improved and without indications for urgent inpatient endoscopic evaluation at this time. # Dilated CBD: Seen on MRCP during last admissio. Liver test previously slightly abnormal but not at the moment. Plan: - Supportive care - Outpatient EUS eval - Outpatient EGD (if EUS can't be done)/CSPY - Advanced diet - OK to DC from GI standpoint if tolerating diet with close outpatient follow-up Pt seen and examined with Dr. Puentes <Lee Puentes - Last Filed: 06/30/18 14:47> Meds - Medications Medications: Current Medications Acetaminophen (Tylenol 325mg Tab) 650 mg PO Q6H PRN PRN Reason: Fever >100.4 F and pain Aspirin (Ecotrin) 81 mg PO DAILY [facility] Last Admin: 06/30/18 10:38 Dose: 81 mg Carvedilol (Coreg) 12.5 mg PO BID [facility] Last Admin: 06/30/18 10:39 Dose: 12.5 mg Famotidine (Pepcid) 20 mg PO DAILY [facility] Last Admin: 06/30/18 10:38 Dose: 20 mg Furosemide (Lasix) 40 mg PO DAILY [facility] Last Admin: 06/30/18 10:38 Dose: 40 mg Heparin Sodium (Porcine) (Heparin) 5,000 units SC Q8 [facility] Last Admin: 06/30/18 13:49 Dose: 5,000 units Lactulose (Enulose) 10 gm PO BID [facility] Last Admin: 06/30/18 10:39 Dose: 10 gm Levothyroxine Sodium (Synthroid) 25 mcg PO DAILY@0630 [facility] Last Admin: 06/30/18 05:51 Dose: 25 mcg Losartan Potassium (Cozaar) 50 mg PO DAILY [facility] Last Admin: 06/30/18 10:39 Dose: 50 mg Ondansetron HCl (Zofran Inj) 4 mg IVP Q6H PRN PRN Reason: Nausea/Vomiting Results - Vital Signs Recent Vital Signs: Last Vital Signs Temp 98.1 F 06/30/18 08:00 Pulse 62 06/30/18 08:00 Resp 18 06/30/18 08:00 BP 119/76 06/30/18 10:39 Pulse Ox 98 06/30/18 08:00 - Labs Result Diagrams: 06/30/18 06:20 06/30/18 06:20 Labs: Laboratory Results - last 24 hr 06/29/18 06/30/18 06/30/18 21:02 06:20 06:20 WBC 7.2 RBC 3.47 L Hgb 11.4 Hct 34.0 MCV 98.1 MCH 32.8 H MCHC 33.4 RDW 15.9 H Plt Count 128 L MPV 11.0 Neut % (Auto) 66.0 Lymph % (Auto) 19.8 L [place] % (Auto) 12.5 H Eos % (Auto) 0.9 Baso % (Auto) 0.8 Neut # (Auto) 4.8 Lymph # (Auto) 1.4 [place] # (Auto) 0.9 H Eos # (Auto) 0.1 Baso # (Auto) 0.1 Sodium 137 Potassium 4.2 Chloride 101 Carbon Dioxide 20 L Anion Gap 20 BUN 25 H Creatinine 1.3 H Est GFR ( Amer) 47 Est GFR (Non-Af Amer) 39 POC Glucose (mg/dL) 255 H Random Glucose 188 H Hemoglobin A1c Calcium 9.8 Phosphorus 4.4 Magnesium 1.9 Total Bilirubin 1.1 AST 26 ALT 29 Alkaline Phosphatase 116 Total Protein 6.9 Albumin 4.0 Globulin 2.9 Albumin/Globulin Ratio 1.4 TSH 3rd Generation 13.20 H 06/30/18 06/30/18 06/30/18 06:20 06:30 11:58 WBC RBC Hgb Hct MCV MCH MCHC RDW Plt Count MPV Neut % (Auto) Lymph % (Auto) [place] % (Auto) Eos % (Auto) Baso % (Auto) Neut # (Auto) Lymph # (Auto) [place] # (Auto) Eos # (Auto) Baso # (Auto) Sodium Potassium Chloride Carbon Dioxide Anion Gap BUN Creatinine Est GFR ( Amer) Est GFR (Non-Af Amer) POC Glucose (mg/dL) 165 H 213 H Random Glucose Hemoglobin A1c 7.1 H Calcium Phosphorus Magnesium Total Bilirubin AST ALT Alkaline Phosphatase Total Protein Albumin Globulin Albumin/Globulin Ratio TSH 3rd Generation Attending/Attestation - Attestation I have personally seen and examined this patient.: Yes I have fully participated in the care of the patient.: Yes I have reviewed all pertinent clinical information: Yes Notes (Text): 06/30/18 14:42 I have seen and examined patient with GI fellow. Agree with above documentation with the following additions. In brief, this is an 82 year old female with history of CAD/CABG, HTN, DM who initially presented to hospital with complaint of intractable nausea. She describes intermittent nausea without vomiting for the past several weeks, no specific association with food consumption. She otherwise denies fever/chills, weight loss, rectal bleeding, or change in bowel habits. She has been tolerating PO diet without difficulty. She was previously recommended to have EGD/colonoscopy evaluation but did not follow through on plans. Review of vitals from today are normal. No recurrent nausea, vomiting since arrival to hospital, she is asking to go home. CAD/CABG DM HTN Acute renal insufficiency Nausea - resolved - Advance diet as tolerated - Continue with h2 dionna therapy PRN - Patient with previous dilated CBD on imaging during last hospitalization, would benefit from elective outpatient evaluation - LFTs normal, continue to monitor - Anti-emetic therapy PRN - No planned GI interventions at this time, suggest outpatient EGD/colonsocopy when medically feasible. Will sign off case, please reconsult as necessary.
--- NOTE | 2018-06-30 12:09 | CARD ---
APPROVED REPORT Date of service: 06/29/2018 EKG Measurement Heart [id number] <Conclusion> Normal sinus rhythm Possible Anterior infarct, age undetermined Abnormal ECG
--- NOTE | 2018-06-30 13:16 | VASCLAB ---
Date of service: 06/30/2018 PROCEDURE: Lower Extremity Venous Duplex Exam. HISTORY: lower bilat edema PRIORS: None. TECHNIQUE: Bilateral common femoral, femoral, popliteal and posterior tibial, peroneal and great saphenous veins were evaluated. Flow was assessed with color Doppler, compressibility, assessment of phasic flow and augmentation response. Report prepared by Israel Guardado, BS, RVT FINDINGS: RIGHT: 1. Common Femoral Vein: 1.1. Compressibility - Fully compressible: Thrombus - None : Flow - Phasic: Augmentation -Normal: Reflux - None. 2. Femoral Vein: 2.1. Compressibility - Fully compressible: Thrombus - None : Flow - Phasic: Augmentation -Normal: Reflux - None. 3. Popliteal Vein: 3.1. Compressibility - Fully compressible: Thrombus - None : Flow - Phasic: Augmentation -Normal: Reflux - None. 4. Posterior Tibial Vein: 4.1. Compressibility - Fully compressible: Thrombus - None: Flow - Phasic: Augmentation -Normal: Reflux - None. 5. Peroneal Vein: 5.1. Compressibility - Fully compressible: Thrombus - None: Flow - Phasic: Augmentation -Normal: Reflux - None. 6. Great Saphenous Vein: 6.1. Compressibility - Fully compressible: Thrombus - None: Flow - Phasic: Augmentation - Normal: Reflux - None. LEFT: 1. Common Femoral Vein: 1.1. Compressibility - Fully compressible: Thrombus - None: Flow - Phasic: Augmentation -Normal: Reflux - None. 2. Femoral Vein: 2.1. Compressibility - Fully compressible: Thrombus - None: Flow - Phasic: Augmentation -Normal: Reflux - None. 3. Popliteal Vein: 3.1. Compressibility - Fully compressible: Thrombus - None : Flow - Phasic: Augmentation -Normal: Reflux - None. 4. Posterior Tibial Vein: 4.1. Compressibility - Fully compressible: Thrombus - None: Flow - Phasic: Augmentation -Normal: Reflux - None. 5. Peroneal Vein: 5.1. Compressibility - Fully compressible: Thrombus - None: Flow - Phasic: Augmentation -Normal: Reflux - None. 6. Great Saphenous Vein: 6.1. Compressibility - Fully compressible: Thrombus - None: Flow - Phasic: Augmentation - Normal: Reflux - None. OTHER FINDINGS: Right: None significant. Left: None significant. IMPRESSION: Right: No evidence of deep or superficial vein thrombosis of the right lower extremity. Normal valve function noted of the right side. Left: No evidence of deep or superficial vein thrombosis of the left lower extremity. Normal valve function noted of the left side.
[2018-06-30] MEDS ORDERED: Bisacodyl 5mg EC Tab PO ONE (13:59)
[2018-06-30 16:32] VITALS: RESP 20
[2018-07-01] MEDS: Levothyroxine 25 MCG TAB PO SCH (05:39)
[2018-07-01 07:06] LABS: BASO # 0.1 K/uL (0.0-0.2); BASO % 1.3 % (0.0-2.0); EOS # 0.2 K/uL (0.0-0.7); EOS % 3.2 % (0.0-4.0); HEMOGLOBIN 11.3 g/dL (11.0-16.0); LYMPH # 1.8 K/uL (1.0-4.3); LYMPH % 26.4 % (20.0-40.0); MEAN CELL VOLUME 97.1 fL (81.0-99.0); MEAN CORPUSCULAR HGB CONC 33.9 g/dL (33.0-37.0); MEAN PLATELET VOLUME 10.7 fL (7.2-11.7); MONO % 14.3 % (0.0-10.0); NEUT # 3.7 K/uL (1.8-7.0); NEUT % 54.8 % (50.0-75.0); NRBC % 0.1 % (0.0-2.0); RBC 3.44 Mil/uL (3.80-5.20); RED CELL DISTRIBUTION WIDTH 15.9 % (11.5-14.5); WHITE BLOOD COUNT 6.8 K/uL (4.8-10.8)
[2018-07-01 07:15] LABS: ALB/GLOB RATIO 1.4 (1.0-2.1); ALBUMIN 3.8 g/dL (3.5-5.0); CALCIUM 9.6 mg/dl (8.6-10.4)
--- NOTE | 2018-07-01 09:08 | CP.PCM.PN ---
Subjective - Date & Time of Evaluation Date of Evaluation: 07/01/18 Time of Evaluation: 09:08 - Subjective Subjective: Pt seen and examined at bedside. Pt reports no complaints overnight. Pt denies any abdominal pain. Pt reported a normal bowel movement last night yellow brown in color, soft non painful no blood streaks seen. Pt denies f/c n/v sob cp Objective - Vital Signs/Intake and Output Vital Signs (last 24 hours): Temp Pulse Resp BP Pulse Ox 97.3 F L 64 20 129/77 99 07/01/18 07:00 07/01/18 08:00 07/01/18 07:00 07/01/18 07:00 07/01/18 07:00 - Medications Medications: Current Medications Acetaminophen (Tylenol 325mg Tab) 650 mg PO Q6H PRN PRN Reason: Fever >100.4 F and pain Aspirin (Ecotrin) 81 mg PO DAILY [facility] Last Admin: 06/30/18 10:38 Dose: 81 mg Carvedilol (Coreg) 12.5 mg PO BID [facility] Last Admin: 06/30/18 17:35 Dose: 12.5 mg Famotidine (Pepcid) 20 mg PO DAILY [facility] Last Admin: 06/30/18 10:38 Dose: 20 mg Furosemide (Lasix) 40 mg PO DAILY [facility] Last Admin: 06/30/18 10:38 Dose: 40 mg Heparin Sodium (Porcine) (Heparin) 5,000 units SC Q8 [facility] Last Admin: 07/01/18 05:40 Dose: 5,000 units Lactulose (Enulose) 10 gm PO BID [facility] Last Admin: 06/30/18 19:08 Dose: Not Given Levothyroxine Sodium (Synthroid) 25 mcg PO DAILY@0630 [facility] Last Admin: 07/01/18 05:39 Dose: 25 mcg Losartan Potassium (Cozaar) 50 mg PO DAILY [facility] Last Admin: 06/30/18 10:39 Dose: 50 mg Ondansetron HCl (Zofran Inj) 4 mg IVP Q6H PRN PRN Reason: Nausea/Vomiting - Labs Labs: 07/01/18 06:58 07/01/18 06:58 PT 22.9 SECONDS (9.7-12.2) H 06/29/18 10:25 INR 2.1 06/29/18 10:25 APTT 32 SECONDS (21-34) 06/29/18 10:25
--- NOTE | 2018-07-01 15:49 | CP.PCM.DIS ---
Provider - Provider Date of Admission: 06/29/18 14:39 Attending physician: Abhilash Todd MD Time Spent in preparation of Discharge (in minutes): 45 Diagnosis - Discharge Diagnosis (1) Vomiting Status: Resolved (2) Abdominal pain Status: Resolved (3) CHF (congestive heart failure) Status: Chronic (4) Hypokalemia Status: Resolved (5) Nausea Status: Resolved Hospital Course - Lab Results Lab Results: Most Recent Lab Values WBC 6.8 K/uL (4.8-10.8) 07/01/18 06:58 RBC 3.44 Mil/uL (3.80-5.20) L 07/01/18 06:58 Hgb 11.3 g/dL (11.0-16.0) 07/01/18 06:58 Hct 33.4 % (34.0-47.0) L 07/01/18 06:58 MCV 97.1 fL (81.0-99.0) 07/01/18 06:58 MCH 33.0 pg (27.0-31.0) H 07/01/18 06:58 MCHC 33.9 g/dL (33.0-37.0) 07/01/18 06:58 RDW 15.9 % (11.5-14.5) H 07/01/18 06:58 Plt Count 139 K/uL (130-400) 07/01/18 06:58 MPV 10.7 fL (7.2-11.7) 07/01/18 06:58 Neut % (Auto) 54.8 % (50.0-75.0) 07/01/18 06:58 Lymph % (Auto) 26.4 % (20.0-40.0) 07/01/18 06:58 [place] % (Auto) 14.3 % (0.0-10.0) H 07/01/18 06:58 Eos % (Auto) 3.2 % (0.0-4.0) 07/01/18 06:58 Baso % (Auto) 1.3 % (0.0-2.0) 07/01/18 06:58 Neut # (Auto) 3.7 K/uL (1.8-7.0) 07/01/18 06:58 Lymph # (Auto) 1.8 K/uL (1.0-4.3) 07/01/18 06:58 [place] # (Auto) 1.0 K/uL (0.0-0.8) H 07/01/18 06:58 Eos # (Auto) 0.2 K/uL (0.0-0.7) 07/01/18 06:58 Baso # (Auto) 0.1 K/uL (0.0-0.2) 07/01/18 06:58 PT 22.9 SECONDS (9.7-12.2) H 06/29/18 10:25 INR 2.1 06/29/18 10:25 APTT 32 SECONDS (21-34) 06/29/18 10:25 Sodium 138 mmol/L (132-148) 07/01/18 06:58 Potassium 3.6 mmol/L (3.6-5.2) 07/01/18 06:58 Chloride 102 mmol/L (98-107) 07/01/18 06:58 Carbon Dioxide 23 mmol/L (22-30) 07/01/18 06:58 Anion Gap 17 (10-20) 07/01/18 06:58 BUN 24 mg/dL (7-17) H 07/01/18 06:58 Creatinine 1.3 mg/dL (0.7-1.2) H 07/01/18 06:58 Est GFR ( Amer) 47 07/01/18 06:58 Est GFR (Non-Af Amer) 39 07/01/18 06:58 POC Glucose (mg/dL) 266 mg/dL (65-110) H 07/01/18 11:24 Random Glucose 136 mg/dL (65-105) H 07/01/18 06:58 Hemoglobin A1c 7.1 % (4.2-6.5) H 06/30/18 06:20 Calcium 9.6 mg/dl (8.6-10.4) 07/01/18 06:58 Phosphorus 3.8 mg/dL (2.5-4.5) 07/01/18 06:58 Magnesium 1.7 mg/dL (1.6-2.3) 07/01/18 06:58 Total Bilirubin 1.2 mg/dL (0.2-1.3) 07/01/18 06:58 AST 26 U/L (14-36) 07/01/18 06:58 ALT 33 U/L (9-52) 07/01/18 06:58 Alkaline Phosphatase 110 U/L (38-126) 07/01/18 06:58 Troponin I < 0.0120 ng/mL (0.00-0.120) 06/29/18 10:25 NT-Pro-B Natriuret Pep 39706 pg/mL (0-900) H 06/29/18 10:25 Total Protein 6.6 g/dL (6.3-8.3) 07/01/18 06:58 Albumin 3.8 g/dL (3.5-5.0) 07/01/18 06:58 Globulin 2.8 gm/dL (2.2-3.9) 07/01/18 06:58 Albumin/Globulin Ratio 1.4 (1.0-2.1) 07/01/18 06:58 Lipase 143 U/L (23-300) 06/29/18 10:25 TSH 3rd Generation 13.20 mIU/L (0.46-4.68) H 06/30/18 06:20 Urine Color Yellow (YELLOW) 06/29/18 10:45 Urine Clarity Hazy (Clear) 06/29/18 10:45 Urine pH 5.0 (5.0-8.0) 06/29/18 10:45 Ur Specific [place] 1.013 (1.003-1.030) 06/29/18 10:45 Urine Protein 2+ mg/dL (NEGATIVE) H 06/29/18 10:45 Urine Glucose (UA) Normal mg/dL (Normal) 06/29/18 10:45 Urine Ketones Negative mg/dL (NEGATIVE) 06/29/18 10:45 Urine Blood Negative (NEGATIVE) 06/29/18 10:45 Urine Nitrate Negative (NEGATIVE) 06/29/18 10:45 Urine Bilirubin Negative (NEGATIVE) 06/29/18 10:45 Urine Urobilinogen Normal mg/dL (0.2-1.0) 06/29/18 10:45 Ur Leukocyte Esterase 1+ Emeterio/uL (Negative) H 06/29/18 10:45 Urine WBC (Auto) 22 /hpf (0-5) H 06/29/18 10:45 Urine RBC (Auto) 2 /hpf (0-3) 06/29/18 10:45 Ur Squamous Epith Cells 4 /hpf (0-5) 06/29/18 10:45 Urine Bacteria Rare (<OCC) 06/29/18 10:45 Hyaline Casts 11-20 /lpf (0-2) H 06/29/18 10:45 - Hospital Course Hospital Course: Patient is a 82 year old female with past medical history of hypertension, systolic CHF, hypercholesterolemia, type 2 diabetes, hypothyroidism presenting with chief complaint of abdominal pain that began 2 days prior. She states this abdominal pain is mostly in her left lower quadrant, and typically occurs about an hour after eating. She also admits to early satiety, nausea and two episodes of nonbloody, nonbilious vomiting, and constipation. Of note she was admitted one month prior and had an MRCP at that time which showed dilated 1.0 cm cbd with tapering. She was unable to followup for outpatient endoscopy. She denies fevers, chills, headache, dizziness, chest pain, shortness of breath, dysuria. Past medical history: hypertension, CHF, hypercholesterolemia, T2DM, hypothyroidism Past surgical: CABG 2011 Social: Denies alcohol, tobacco use, recreational drug use. Allergies: NKDA Home meds: Losartan 50 mg PO daily, Lasix 40 mg PO QD, Carvedilol 12.5 mg PO BID , Aspirin 81 mg PO daily, metformin 500 mg PO BID, Pepcid 20 mg PO BID Family history: Mother (T2DM) PMD: Dr. Jessica Noriega A 12 point ROS was reviewed and negative except as mentioned in HPI. Hospital Course: Pt admitted with nausea and abdominal pain. Pt given zofran, and Lactulose and pepcid. Pt also restarted on home medication of ASA Carvedilol lasix synthroid and cozaar. Pt improved with a normal bowel movement on 07/01. Pt medically stable for d/c home. Imaging and Diagnostics: EKG: NSR Abd Pelv CT: No Ct evidenece of pancreatitis or cholecystitis or appendicitis CXR: Neg Doppler: neg Please refer to [id number] for full reports instructions: Pt is to follow up with GI outpt within one week of discharge Pt is to take over the counter Miralax once daily at night until symptoms resolve Pt will be provided with one month supply of home medications. Discharge Exam - Head Exam Head Exam: ATRAUMATIC, NORMAL INSPECTION - Additional Findings Additional findings: - Constitutional Appears: Well, No Acute Distress - Head Exam Head Exam: ATRAUMATIC, NORMOCEPHALIC - Eye Exam Eye Exam: EOMI, Normal appearance - ENT Exam ENT Exam: Mucous Membranes Dry, Normal Exam - Neck Exam Neck exam: Positive for: Full Rom. Negative for: Lymphadenopathy, Tenderness - Respiratory Exam Respiratory Exam: NORMAL BREATHING PATTERN. absent: Respiratory Distress Additional comments: Bibasilar crackles - Cardiovascular Exam Cardiovascular Exam: REGULAR RHYTHM, +S1, +S2 Additional comments: Lifevest - GI/Abdominal Exam GI & Abdominal Exam: Hypoactive Bowel Sounds, Soft, Tenderness. absent: Distended, Firm, Guarding, Mass, Rebound, Rigid Additional comments: Ecchymosis in RLQ 2/2 heparin SC - Extremities Exam Extremities exam: Positive for: pedal edema. Negative for: calf tenderness Additional comments: +2 pitting edema - Back Exam Back exam: NORMAL INSPECTION - Neurological Exam Neurological exam: Alert, Oriented x3 - Psychiatric Exam Psychiatric exam: Normal Affect, Normal Mood - Skin Skin Exam: Dry, Intact, Warm Discharge Plan - Discharge Medications Prescriptions: Carvedilol [Coreg] 6.25 mg PO BID #60 tab Famotidine [Pepcid] 40 mg PO DAILY #30 tab Furosemide [Lasix] 40 mg PO DAILY #30 tablet Levothyroxine [Synthroid] 25 mcg PO DAILY #30 tab Losartan [Cozaar] 50 mg PO DAILY #30 tab metFORMIN [glucOPHAGE] 500 mg PO BID #60 tab - Follow Up Plan Condition: FAIR Disposition: HOME/ ROUTINE Instructions: Heart Healthy Diet, Medical Devices for Congestive Heart Failure (CHF), Heart Failure (DC), Acute Abdominal Pain (DC) Additional Instructions: Pt is medically stable for discharge Pt is to take over the counter miralax at night for constipation.
[2018-07-01 16:08] VITALS: BP 119/76; PULSE 61; TEMP 97.6; O2SAT 100
--- NOTE | 2018-07-01 16:54 | PCM.HF ---
Heart Failure Core Measure - Heart Failure Ejection Fraction: Less Than 40 % DARRIUS Inhibitor Prescribed: No Contraindication/Reason for not providing: on ARB Beta-Pepe Prescribed: Carvedilol Angiotensin II Receptor Pepe Prescribed: Yes AnticoagulationTherapy for Atrial Fibrillation/Atrialflutter: No Contraindication/Reason for not providing: no hx of a fib Aldosterone Antagonist Prescribed: No Contraindication/Reason for not providing: risk for hyperkalemia Hydralazine Nitrate Prescribed: No Contraindication/Reason for not providing: bp running low Implantable Cardioverter Defibrillator Therapy: No Contraindication/Reason for not providing: on vest trail Cardiac Resynchronization Therapy Prescribed: No Contraindication/Reason for not providing: on vest trail - Follow up Will be discharged to: Home Follow Up Date (must be within 7 days from discharge): 07/06/18 Follow Up Time: 09:00
== END 2018-07-01 16:30 | disposition home or self-care (01) ==
LOC: C.ER 09:42 → C.9E 14:39 → C.5S 16:25
PROVIDERS: ADMIT Internal Medicine; ATTEND Internal Medicine
DX: R10.31 Right lower quadrant pain (principal); E87.6 Hypokalemia; E78.00 Pure hypercholesterolemia, unspecified; E11.9 Type 2 diabetes mellitus without complications; E03.9 Hypothyroidism, unspecified; I11.0 Hypertensive heart disease with heart failure; I25.10 Atherosclerotic heart disease of native coronary artery without angina pectoris; I50.42 Chronic combined systolic (congestive) and diastolic (congestive) heart failure; K59.00 Constipation, unspecified; Z79.84 Long term (current) use of oral hypoglycemic drugs; Z95.1 Presence of aortocoronary bypass graft
CPT/HCPCS: 36415; 71045; 74177; 80053; 81001; 82948; 83036; 83690; 83735; 83880; 84100; 84443; 84484; 85025; 85610; 85730; 87086; 93005; 93970; 96374; 99285; G0378; J1644; J1940; J2405; Q9967